=== PATIENT | female | born 1995 | race Caucasian/White ===

== ENCOUNTER → 2021-02-05 | Outpatient (CLI) | payer BC ==
--- NOTE | 2021-02-05 17:30 | Diagnostic Imaging Report ---
INDICATION: survey. There are no prior studies available for comparison. There is a single live fetus in breech presentation. heart motion was noted and a rate of 155 BPM was recorded. There were no abnormalities identified. However the face was not well visualized due to lie. The placenta is anterior and there is no previa. The amniotic fluid volume is within normal limits. The growth parameters are fairly uniform. The cervix was identified and measures 4.2 cm in length. TECHNIQUE: Multiple real-time grayscale images were obtained over the gravid uterus. COMPARISON: None FINDINGS: Biometrical measurements are as follows: Biparietal 4.75 cm, age 20 weeks 3 days. Head circumference 17.81 cm, age 20 weeks 2 days. Abdominal circumference 16.26 cm, age 21 weeks 3 days. Femur length 3.26 cm, age 20 weeks 2 days. Sonographic estimate age: 20 weeks 5 days. Sonographic estimated date of delivery: 06/20/2021. Estimated Weight: 374 gm (+/- 55 gm). LMP percentile: 63%. heart rate: 155 beats per minute. number: 1 of 1. IMPRESSION: 1. There is a single live fetus approximately 20 weeks 5 day gestation +/- 1.5 weeks. EDC is 06/20/2021. 2. There were no abnormalities identified, although the face was not well visualized. 3. The growth parameters are fairly uniform. Dictated by: Dictated on workstation # [id number]
== END ==
LOC: RAD 14:54
PROVIDERS: ATTEND Nurse Practitioner Women's Health
DX: Z34.02 Encounter for supervision of normal first pregnancy, second trimester (principal); Z3A.20 20 weeks gestation of pregnancy
CPT/HCPCS: 76805

== ENCOUNTER 2021-06-22 19:11 | Inpatient (IN) | payer BC ==
[~2021-06-22] VITALS: Ht 165.1 cm; Wt 110.0 kg
[2021-06-22 19:50] VITALS: BP 124/77
[2021-06-22] MEDS ORDERED: NS IV 1000 ML 1,000 ML ONE (19:53)
[2021-06-22 20:58] LABS: BASOPHILS % (AUTO) 0 % (0-10); EOSINOPHILS % (AUTO) 0 % (0-10); HEMATOCRIT 36 % (35-52); HEMOGLOBIN 12.2 g/dL (11.5-16.0); LYMPHOCYTES # (AUTO) 1.3 10^3/uL (1.0-4.0); LYMPHOCYTES % (AUTO) 11 % (12-44); MEAN CORPUSCULAR HEMOGLOBIN 31 pg (25-34); MEAN CORPUSCULAR HGB CONC 34 g/dL (32-36); MEAN CORPUSCULAR VOLUME 92 fL (80-99); MEAN PLATELET VOLUME 11.4 fL (9.0-12.2); MONOCYTES # (AUTO) 0.6 10^3/uL (0.0-1.0); MONOCYTES % (AUTO) 5 % (0-12); NEUTROPHILS # (AUTO) 9.6 10^3/uL (1.8-7.8); NEUTROPHILS % (AUTO) 83 % (42-75); PLATELET COUNT 227 10^3/uL (130-400); WHITE BLOOD COUNT 11.6 10^3/uL (4.3-11.0)
[2021-06-22] MEDS ORDERED: NS IV 1000 ML 1,000 ML IV ONE (21:00)
[2021-06-22] MEDS ORDERED: TERBUTALINE INJ 1 MG/ML (BRETHINE) AMP SC PRN (21:00)
[2021-06-22 21:02] VITALS: BP 134/92
[2021-06-22 21:38] VITALS: BP 120/66
[2021-06-22] MEDS: CATHETER FLUSH 10 ML SYR IV SCH (22:00)
[2021-06-22 22:20] VITALS: BP 116/65
[2021-06-22 23:20] VITALS: BP 108/59
[2021-06-22] MEDS ORDERED: PREN-142 PO (23:43)
[2021-06-22] MEDS ORDERED: FERR-84 PO (23:43)
[2021-06-23] VITALS (68 sets, daily range): BP systolic 88–169; BP diastolic 46–110
[2021-06-23] MEDS: D5 LR IV SOLUTION 1,000 ML IV SCH ×4 (00:01→20:22)
[2021-06-23] MEDS ORDERED: AMPICILLIN FOR IV USE 2,000 MG in NS (IVPB) 50 ML IV ONE (02:00)
[2021-06-23] MEDS ORDERED: HYDROmorphone 2 MG/ML VIAL (DILAUDID) ONE (02:14)
[2021-06-23] MEDS ORDERED: HYDROmorphone 2 MG/ML VIAL (DILAUDID) IV ONE (02:15)
[2021-06-23] MEDS ORDERED: fentaNYL 2 mcg/ml BUPIVA 0.125 100 ML ONE (02:27)
[2021-06-23] MEDS ORDERED: LACTATED RINGERS 1,000 ML IV ONE (03:30)
[2021-06-23] MEDS ORDERED: EPIDURAL (fentaNYL 2 MCG/ML BUPIVA 0.125%)100 ML BAG EPI SCH (04:30)
[2021-06-23] MEDS ORDERED: diphenhydrAMINE 50 MG/ML INJ (BENADRYL) IV PRN (04:30)
[2021-06-23] MEDS ORDERED: LACTATED RINGERS 1,000 ML IV SCH (04:30)
[2021-06-23] MEDS ORDERED: ONDANSETRON 4 MG/2 ML (SDV) Z0FRAN IV PRN (04:30)
[2021-06-23] MEDS ORDERED: NALOXONE 0.4 MG/ML 1 ML (NARCAN) VIAL IV PRN ×2 (04:30)
[2021-06-23] MEDS ORDERED: METOCLOPRAMIDE INJ 10 MG/2 ML (REGLAN) IV PRN (04:30)
[2021-06-23] MEDS ORDERED: AMPICILLIN FOR IV USE 1,000 MG in NS (IVPB) 50 ML IV SCH (06:00)
[2021-06-23] MEDS ORDERED: LIDOCAINE/EPI 2% 1:200,00 (XYLOCAINE) 10 ML VIAL ONE (08:12)
[2021-06-23] MEDS ORDERED: OXYTOCIN PRE-MIX DRIP 500 ML IV ONE ×3 (08:12→10:34)
[2021-06-23] MEDS: LACTATED RINGERS 1,000 ML IV PRN ×3 (09:00→11:06)
[2021-06-23] MEDS ORDERED: METHYLERGONOVINE 0.2 MG/ML (METHERGINE) AMP ONE ×2 (09:10→10:32)
[2021-06-23] MEDS ORDERED: CARBOPROST (HEMABATE) 250 MCG/ML AMP IM ONE ×3 (09:31→10:49)
[2021-06-23] MEDS ORDERED: NS IV 500 ML 500 ML IV SCH ×2 (09:45→21:00)
[2021-06-23] MEDS ORDERED: ceFAZolin 2 GM IV Premixed 50 ML ONE (09:48)
[2021-06-23] MEDS ORDERED: NS (IVPB) 100 ML ONE (10:36)
[2021-06-23] MEDS ORDERED: TRANEXAMIC ACID 100 MG/ML 10 ML INJECTION ONE (10:43)
[2021-06-23] MEDS ORDERED: PHENYLEPHRINE INJ 10 MG/ML (FOR DRIP KITS ONLY) ONE ×2 (10:59→13:25)
[2021-06-23] MEDS ORDERED: ALBUMIN 25% 25 GM/100 ML 100 ML IV ONE ×2 (11:05→11:06)
[2021-06-23 11:25] LABS: HEMOGLOBIN 8.8 g/dL (11.5-16.0)
[2021-06-23 11:26] LABS: ABG BASE EXCESS -16.6 MMOL/L (-2.5-2.5); ABG OXYGEN SATURATION 100 % (94-100); ABG PCO2 38 MMHG (35-45); ABG PO2 376 MMHG (79-93); ABG TCO2 12.4 MMOL/L (21.0-31.0)
[2021-06-23 11:29] LABS: VENTILATOR YES
[2021-06-23 11:33] LABS: INR 3.3 (0.8-1.4); PROTHROMBIN TIME PATIENT 33.9 SEC (12.2-14.7)
[2021-06-23 12:30] LABS: HEMOGLOBIN 6.9 g/dL (11.5-16.0)
[2021-06-23] MEDS ORDERED: ceFAZolin INJECTION 2,000 MG ONE (12:34)
[2021-06-23] MEDS ORDERED: MIDAZOLAM 5 MG/5 ML (VERSED) VIAL ONE (12:47)
[2021-06-23] MEDS ORDERED: SODIUM BICARB 8.4% 50 MEQ/50 ML (ABBOTT) SYR IV NR (13:00)
[2021-06-23] MEDS ORDERED: PROPOFOL DRIP (ICU) 100 ML IV ONE (13:05)
[2021-06-23] MEDS: PROPOFOL DRIP (ICU) 100 ML IV SCH ×3 (13:17→22:34)
--- NOTE | 2021-06-23 13:19 | Progress Note-Post Operative ---
Post-Operative Progess Note Surgeon (s)/Acds Block 1 Operator (s) Surgeon MARTA DAWN DO Acds Block 1 Operator: none Pre-Operative Diagnosis Hypotension, Vaginal hemorrhage, Venous Insufficiency Post-Operative Diagnosis same Procedure & Operative Findings Date of Procedure 06/23/21 Procedure Performed/Findings Central Line Insertion This was an emergency, pt in the OR needed emergent central venous access. Prepped and draped in the sterile fashion. A surgical pause was performed. Ultrasound was used to locate the internal jugular vein. Once located an 18 gauge finder needle was advance and watched with the US; the left internal jugular vein was accessed. Dark nonpulsatile blood was withdrawn. The wire was inserted and US assured proper placement. The needle was removed. A [#11] blade scalpel was used to make a stab incision along the guidewire. Dilator sheath was then advanced over the wire using Seldinger technique and the dilator was removed. The Groshong catheter was inserted over the guide wire using the Seldinger technique. The Groshong wire was removed. The catheter was then accessed in all three ports without difficulty. Good flash of blood was seen and it was then flushed with saline. The catheter was sutured in place with 3-0 silk on a laine needle. The areas were then washed and dried. Sterile dressing was placed over incision. The patient tolerated the procedure well without complication. Anesthesia Type GET Estimated Blood Loss Estimated blood loss (mL): scant Specimens/Packing Specimens Removed none MARTA DAWN DO Jun 23, 2021 13:19
[2021-06-23] MEDS ORDERED: SUCCINYLCHOLINE INJ 100 MG/5 ML SYR/VIAL ONE (13:25)
[2021-06-23] MEDS ORDERED: proPOfol 200 MG/20 ML (DIPRIVAN) VIAL IV ONE (13:25)
[2021-06-23] MEDS ORDERED: PHENYLEPHRINE 100 MCG/ML 10 ML (ANESTHESIA) SYR ONE (13:25)
[2021-06-23] MEDS ORDERED: ONDANSETRON 4 MG/2 ML (SDV) Z0FRAN ONE (13:25)
[2021-06-23] MEDS ORDERED: SEVOFLURANE (ULTANE) 15 ML INHAL SOLN ONE (13:26)
--- NOTE | 2021-06-23 13:33 | Tele-ICU Consult ---
History of Present Illness History of Present Illness Date Seen by Provider: Jun 23, 2021 Time Seen by Provider: 13:33 Date of Admission 06/23/21 History of Present Illness She is admitted for induction of labor for her first . During the intrapartum. She had a severe hemorrhage with blood loss up to 5 L. She was taken to the operating room and inspection done under general anesthesia and reportedly she underwent hysterectomy. At the time of this dictation operative report was not available. I have discussed with the details with AIRCRAFT ARMORER and obtained some history. She is noted to have a severe anemia, thrombocytopenia and coagulopathy. She is being transfused FFP, PRBCs, cryoprecipitate. She came back from surgery on mechanical ventilation. I have given orders related to mechanical ventilation. The surgeon is managing the management of hemorrhage. Reportedly she does not have any other medical problems prior to the . Allergies and Home Medications Allergies Coded Allergies: No Known Drug Allergies (Unverified , 06/22/21) Home Medications Ferrous Sulfate 325 Mg Tablet, 325 MG PO DAILY, (Reported) Vit No.124/Iron/FA 1 Each Tablet, 1 EACH PO DAILY, (Reported) Past Medical/Social/Family Hx Patient Social History Tobacco Use?: No Smoking Status: Never a Smoker Smokeless Tobacco Frequency: Never a User Use of E-Cig and/or Vaping dev: No Substance use?: No Alcohol Use?: No Pt stated abuse/neglect: No Immunizations Up To Date Influenza Vaccine Up-to-Date: No; Not Current Tetanus Booster (TDap): Less Than 5 Years Current Status Advance Directives: No Communicates: Verbally Primary Language: Thai Preferred Spoken Language: Thai Is interpretation needed?: No Implanted or Applied Medical D: None Review of Systems Constitutional: see HPI, other (INTUBATED, LOOKS PALE) Focused Exam Height, Weight, BMI Height: '" Weight: lbs. oz. kg; 31.55 BMI Method: Exam Exam Patient acknowledged, consented, and participated in this virtual visit which was conducted using real time audio/video Vital Signs Date Time Temp Pulse Resp B/P (MAP) Pulse Ox O2 Delivery O2 Flow Rate FiO2 06/23/21 13:17 152/90 06/23/21 09:42 131 18 88/47 (61) 100 Non Rebreather 10.00 06/23/21 09:39 126 18 94/46 (62) 100 Non Rebreather 10.00 06/23/21 09:37 144 18 107/70 (82) 100 Non Rebreather 10.00 06/23/21 09:31 121 18 119/59 (79) 100 Non Rebreather 10.00 06/23/21 09:29 118 18 106/69 (81) 100 Non Rebreather 10.00 06/23/21 09:13 99 18 117/62 (80) 100 Room Air 06/23/21 09:11 99 18 117/59 (78) 98 Room Air 06/23/21 09:08 38.5 157 18 162/96 (118) 100 Room Air 06/23/21 08:57 134 18 143/68 (93) 100 Room Air 06/23/21 07:00 36.8 64 18 121/68 (85) 100 Room Air 06/23/21 06:45 65 18 119/73 (88) 100 Room Air 06/23/21 06:30 66 18 117/73 (88) 100 Room Air 06/23/21 06:15 74 18 123/76 (92) 100 Room Air 06/23/21 06:00 62 18 118/71 (87) 100 Room Air 06/23/21 05:45 69 18 113/77 (89) 100 Room Air 06/23/21 05:30 36.8 64 18 113/65 (81) 100 Room Air 06/23/21 05:15 64 18 113/68 (83) 100 Room Air 06/23/21 05:10 64 18 115/68 (84) 100 Room Air 06/23/21 05:05 74 18 121/61 (81) 100 Room Air 06/23/21 05:00 69 18 115/69 (84) 100 Room Air 06/23/21 04:55 62 18 115/69 (84) 100 Room Air 06/23/21 04:50 71 18 118/67 (84) 100 Room Air 06/23/21 04:43 69 18 111/63 (79) 100 Room Air 06/23/21 04:39 66 18 118/63 (81) 100 Room Air 06/23/21 04:36 68 18 114/57 (76) 100 Room Air 06/23/21 04:33 78 18 126/53 (77) 100 Room Air 06/23/21 04:30 71 18 117/65 (82) 97 Room Air 06/23/21 04:27 70 18 117/59 (78) 97 Room Air 06/23/21 04:24 67 18 117/55 (75) 97 Room Air 06/23/21 04:21 67 18 126/61 (82) 99 Room Air 06/23/21 04:18 73 18 128/62 (84) 99 Room Air 06/23/21 04:15 60 18 134/61 (85) 99 Room Air 06/23/21 04:12 68 18 144/66 (92) 99 Room Air 06/23/21 04:09 72 18 150/63 (92) 99 Room Air 06/23/21 04:06 65 18 134/62 (86) 99 Room Air 06/23/21 04:03 69 18 134/65 (88) 99 Room Air 06/23/21 04:00 36.8 64 18 133/69 (90) Room Air 06/23/21 03:00 69 18 141/87 (105) Room Air 06/23/21 02:00 36.8 73 18 119/67 (84) Room Air 06/23/21 01:00 76 18 116/57 (76) Room Air 06/23/21 00:20 73 18 108/58 (75) Room Air 06/22/21 23:20 82 18 108/59 (75) Room Air 06/22/21 22:20 36.8 75 18 116/65 (82) 97 Room Air 06/22/21 21:38 82 18 120/66 (84) Room Air 06/22/21 21:02 97 18 134/92 (106) Room Air 06/22/21 19:50 36.9 116 18 124/77 (93) 98 Room Air 06/22/21 19:50 36.9 116 18 98 Room Air I & O 06/23/21 07:00 Intake Total 2050 ml Balance 2050 ml Height & Weight Height: '" Weight: lbs. oz. kg; 31.55 BMI Method: General Appearance: Moderate Distress Capillary Refill: Less Than 3 Seconds Other comments PE PER RN Results Lab Laboratory Tests 06/22/21 20:05 06/23/21 10:40 06/23/21 12:10 Assessment/Plan Assessment/Plan Impression. 1. Intrapartum hemorrhage requiring hysterectomy. 2. Anemia with coagulopathy related to complication 3. Postoperative respiratory failure requiring mechanical ventilation. Recommendations 1. Continue mechanical ventilatory support 2. I have ordered sodium bicarbonate IV push due to severe metabolic acidosis 3. Transfusion of blood products per the surgeon 4. Continue monitor CBC, BMP arterial blood gases as well as coagulation studies. 5. Video visit made and discussed with the AIRCRAFT ARMORERbutton riveter: Ventilator Management Time spent with patient (mins): 35 DEVEN PIEDRA MD Jun 23, 2021 13:33
--- NOTE | 2021-06-23 13:37 | Diagnostic Imaging Report ---
INDICATION: ET tube and central line placement. TIME OF EXAM: 1:19 p.m. COMPARISON: No prior studies are available for comparison. FINDINGS: ET tube has tip above the sylvia. NG tube passes into the stomach. There is a left-sided line with the tip overlying the SVC. No definite pneumothorax is identified. Lungs appear clear. There is no effusion. IMPRESSION: Satisfactory position of various lines and catheters. Dictated by: Dictated on workstation # [id number]
[2021-06-23] MEDS ORDERED: NS IV 1000 ML 1,000 ML IV ONE (13:45)
[2021-06-23] MEDS ORDERED: SODIUM BICARB 8.4% 50 MEQ/50 ML (ABBOTT) SYR INJ ONE (13:57)
[2021-06-23] MEDS ORDERED: CALCIUM CHLORIDE 1 GM/10 ML (IMS) SYR INJ ONE (13:57)
[2021-06-23] MEDS ORDERED: fentaNYL DRIP PRE-MIX 250 ML IV ONE (14:16)
[2021-06-23] MEDS: fentaNYL DRIP PRE-MIX 250 ML IV SCH ×2 (14:23→22:32)
[2021-06-23 14:26] LABS: ABG BASE EXCESS -4.4 MMOL/L (-2.5-2.5); ABG OXYGEN SATURATION 100 % (94-100); ABG PCO2 33 MMHG (35-45); ABG PH 7.39 (7.37-7.43); ABG PO2 172 MMHG (79-93); ABG TCO2 20.6 MMOL/L (21.0-31.0)
[2021-06-23 14:28] LABS: ALLENS TEST ART LINE
[2021-06-23 14:29] LABS: INSPIRED O2 40%; PATIENT TEMP 37.2; VENTILATOR YES
--- NOTE | 2021-06-23 14:45 | History & Physical-OB ---
OB - Chief Complaint & HPI Date/Time Date of Admission: Date of Admission: Jun 22, 2021 at 19:11 Date seen by a Provider: Jun 23, 2021 Time Seen by a Provider: 08:00 Chief Complaint/History Hx : 1 Hx Para: 0 Expected Date of Delivery: Jun 22, 2021 Gestational Age in Weeks: 40 Gestational Age in Days: 1 Other reason for admission: Patient admitted last night for IOL due to post dates. Admission Nurse Assessment Rev: Yes History of Labs O neg GBS pos Allergies and Home Medications Allergies Coded Allergies: No Known Drug Allergies (Unverified , 06/22/21) Patient Home Medication List Home Medication List Reviewed: Yes Ferrous Sulfate (Iron) 325 Mg Tablet, 325 MG PO DAILY, (Reported) Entered as Reported by: ENRIQUETA JAY on 06/22/212342 Last Action: New Order Vit No.124/Iron/FA ( Vitamin Tablet) 1 Each Tablet, 1 EACH PO DAILY, (Reported) Entered as Reported by: ENRIQUETA JAY on 06/22/212342 Last Action: New Order OB - History Hx of Present Care: Yes Ultrasounds: Normal mid trimester US Obstetrical Complications: None Medical Complications: None Patient Past Medical History n/a Immunizations Influenza Vaccine Up-to-Date: No; Not Current OB - Admission Exam Physical Exam Vitals: Vital Signs 06/23/21 06/23/21 13:45 14:22 Temp 37.5 Pulse 146 Resp 18 B/P (MAP) 110/53 Pulse Ox 100 O2 Delivery Mechanical Ventilator O2 Flow Rate 100 FiO2 30 HEENT: NCAT Heart: Rhythm Normal Lungs: Clear Abdomen: Gravid Extremities: Normal Reflexes: Normal Cervical Dilatation: 1cm Effacement: 75% Station: -2 Membranes: Intact Heart Rate: 130's Accelerations: Accelerations Present Decelerations: No Decelerations Short Term Variability: Present Snf Variability: Average (6-25) Contractions on Admission: 6-10 Minutes Apart Intensity: Mild Labs Laboratory Tests Test 06/22/21 20:05 06/23/21 10:40 06/23/21 11:15 06/23/21 11:18 Range/Units White Blood Count 11.6 H 4.3-11.0 10^3/uL Red Blood Count 3.88 3.80-5.11 10^6/uL Hemoglobin 12.2 8.8 #L 11.5-16.0 g/dL Hematocrit 36 27 L 35-52 % Mean Corpuscular Volume 92 80-99 fL Mean Corpuscular Hemoglobin 31 25-34 pg Mean Corpuscular Hemoglobin Concent 34 32-36 g/dL Red Cell Distribution Width 12.8 10.0-14.5 % Platelet Count 227 51 L 130-400 10^3/uL Mean Platelet Volume 11.4 9.0-12.2 fL Immature Granulocyte % (Auto) 1 % Neutrophils (%) (Auto) 83 H 42-75 % Lymphocytes (%) (Auto) 11 L 12-44 % Monocytes (%) (Auto) 5 0-12 % Eosinophils (%) (Auto) 0 0-10 % Basophils (%) (Auto) 0 0-10 % Neutrophils # (Auto) 9.6 H 1.8-7.8 10^3/uL Lymphocytes # (Auto) 1.3 1.0-4.0 10^3/uL Monocytes # (Auto) 0.6 0.0-1.0 10^3/uL Eosinophils # (Auto) 0.0 0.0-0.3 10^3/uL Basophils # (Auto) 0.0 0.0-0.1 10^3/uL Immature Granulocyte # (Auto) 0.1 0.0-0.1 10^3/uL Prothrombin Time 33.9 H 12.2-14.7 SEC INR Comment 3.3 H 0.8-1.4 Blood Gas Puncture Site LT BRACHIAL Blood Gas Patient Temperature UNK Arterial Blood pH 7.10 *L 7.37-7.43 Arterial Blood Partial Pressure CO2 38 35-45 MMHG Arterial Blood Partial Pressure O2 376 H 79-93 MMHG Arterial Blood HCO3 11 *L 23-27 MMOL/L Arterial Blood Total CO2 12.4 L 21.0-31.0 MMOL/L Arterial Blood Oxygen Saturation 100 94-100 % Arterial Blood Base Excess -16.6 L -2.5-2.5 MMOL/L Fabio Test UNK Blood Gas Ventilator Setting YES Blood Gas Inspired Oxygen UNK Test 06/23/21 12:10 06/23/21 14:18 06/23/21 14:29 Range/Units Hemoglobin 6.9 #*L 11.5-16.0 g/dL Hematocrit 21 L 35-52 % Blood Gas Puncture Site R FEM ARTLINE Blood Gas Patient Temperature 37.2 Arterial Blood pH 7.39 7.37-7.43 Arterial Blood Partial Pressure CO2 33 L 35-45 MMHG Arterial Blood Partial Pressure O2 172 H 79-93 MMHG Arterial Blood HCO3 20 L 23-27 MMOL/L Arterial Blood Total CO2 20.6 L 21.0-31.0 MMOL/L Arterial Blood Oxygen Saturation 100 94-100 % Arterial Blood Base Excess -4.4 L -2.5-2.5 MMOL/L Fabio Test ART LINE Blood Gas Ventilator Setting YES Blood Gas Inspired Oxygen 40% OB - Assessment/Plan/Diagnosis Assessment Assessment: induction of labor Admission Dx 25 yo @ 40.1 weeks Post dates IOL GBS pos Admission Status: Inpatient Order (span 2 midnights) Reason for Inpatient Admission: IOL at 40 weeks Plan Plan: Induction Induction Method: per Misoprostol Protocol SENG RAMIREZ DO Jun 23, 2021 14:45
[2021-06-23 14:47] LABS: INR 1.8 (0.8-1.4)
[2021-06-23 14:50] LABS: HEMOGLOBIN 4.7 g/dL (11.5-16.0)
--- NOTE | 2021-06-23 14:56 | OB Labor & Delivery Record ---
L&D History Date of Service Date of Service: Jun 23, 2021 History Expected Date of Delivery: Jun 22, 2021 Gestational Age in Weeks: 40 Hx : 1 Hx Para: 0 Complications Events: Routine care Intrapartal Events: Bleeding, Ineffective Pushing Other Complications hemorrhage L&D Stage1 Stage One Onset of Labor - Date: Jun 23, 2021 Monitors and Tracing Monitor Mode: External Heart Rate: 155 Monitor Decelerations: Variable Station: +1 Chemical Lab Technician Variability: Average (6-10) Short Term Variability: Present Presentation: Vertex Vital Signs VS - Last 72 Hours, by Label 06/22/21 06/22/21 06/22/21 06/22/21 19:50 19:50 21:02 21:38 Temp 36.9 36.9 Pulse 116 116 97 82 Resp 18 18 18 18 B/P (MAP) 124/77 (93) 134/92 (106) 120/66 (84) Pulse Ox 98 98 O2 Delivery Room Air Room Air Room Air Room Air 06/22/21 06/22/21 06/23/21 06/23/21 22:20 23:20 00:20 01:00 Temp 36.8 Pulse 75 82 73 76 Resp 18 18 18 18 B/P (MAP) 116/65 (82) 108/59 (75) 108/58 (75) 116/57 (76) Pulse Ox 97 O2 Delivery Room Air Room Air Room Air Room Air 06/23/21 06/23/21 06/23/21 06/23/21 02:00 03:00 04:00 04:03 Temp 36.8 36.8 Pulse 73 69 64 69 Resp 18 18 18 18 B/P (MAP) 119/67 (84) 141/87 (105) 133/69 (90) 134/65 (88) Pulse Ox 99 O2 Delivery Room Air Room Air Room Air Room Air 06/23/21 06/23/21 06/23/21 06/23/21 04:06 04:09 04:12 04:15 Pulse 65 72 68 60 Resp 18 18 18 18 B/P (MAP) 134/62 (86) 150/63 (92) 144/66 (92) 134/61 (85) Pulse Ox 99 99 99 99 O2 Delivery Room Air Room Air Room Air Room Air 06/23/21 06/23/21 06/23/21 1/19/22 04:18 04:21 04:24 04:27 Pulse 73 67 67 70 Resp 18 18 18 18 B/P (MAP) 128/62 (84) 126/61 (82) 117/55 (75) 117/59 (78) Pulse Ox 99 99 97 97 O2 Delivery Room Air Room Air Room Air Room Air 06/23/21 06/23/21 06/23/21 06/23/21 04:30 04:33 04:36 04:39 Pulse 71 78 68 66 Resp 18 18 18 18 B/P (MAP) 117/65 (82) 126/53 (77) 114/57 (76) 118/63 (81) Pulse Ox 97 100 100 100 O2 Delivery Room Air Room Air Room Air Room Air 06/23/21 06/23/21 06/23/21 06/23/21 04:43 04:50 04:55 05:00 Pulse 69 71 62 69 Resp 18 18 18 18 B/P (MAP) 111/63 (79) 118/67 (84) 115/69 (84) 115/69 (84) Pulse Ox 100 100 100 100 O2 Delivery Room Air Room Air Room Air Room Air 06/23/21 06/23/21 06/23/21 06/23/21 05:05 05:10 05:15 05:30 Temp 36.8 Pulse 74 64 64 64 Resp 18 18 18 18 B/P (MAP) 121/61 (81) 115/68 (84) 113/68 (83) 113/65 (81) Pulse Ox 100 100 100 100 O2 Delivery Room Air Room Air Room Air Room Air 06/23/21 06/23/21 06/23/21 06/23/21 05:45 06:00 06:15 06:30 Pulse 69 62 74 66 Resp 18 18 18 18 B/P (MAP) 113/77 (89) 118/71 (87) 123/76 (92) 117/73 (88) Pulse Ox 100 100 100 100 O2 Delivery Room Air Room Air Room Air Room Air 06/23/21 06/23/21 06/23/21 06/23/21 06:45 07:00 07:15 07:30 Temp 36.8 Pulse 65 64 74 71 Resp 18 18 18 18 B/P (MAP) 119/73 (88) 121/68 (85) 121/68 (85) Pulse Ox 100 100 100 100 O2 Delivery Room Air Room Air Room Air Room Air 06/23/21 06/23/21 06/23/21 06/23/21 07:45 08:00 08:15 08:30 Temp 37.1 Pulse 68 75 85 71 Resp 18 18 18 18 B/P (MAP) 120/64 (82) 128/65 (86) 120/88 (99) 129/76 (93) Pulse Ox 100 100 100 100 O2 Delivery Room Air Room Air Room Air Room Air 06/23/21 06/23/21 06/23/21 06/23/21 08:45 08:57 09:08 09:11 Temp 38.5 Pulse 71 134 157 99 Resp 18 18 18 18 B/P (MAP) 130/63 (85) 143/68 (93) 162/96 (118) 117/59 (78) Pulse Ox 100 100 98 O2 Delivery Room Air Room Air Room Air Room Air 06/23/21 06/23/21 06/23/21 06/23/21 09:13 09:29 09:31 09:37 Pulse 99 118 121 144 Resp 18 18 18 18 B/P (MAP) 117/62 (80) 106/69 (81) 119/59 (79) 107/70 (82) Pulse Ox 100 100 100 100 O2 Delivery Room Air Non Rebreather Non Rebreather Non Rebreather O2 Flow Rate 10.00 10.00 10.00 06/23/21 06/23/21 06/23/21 06/23/21 09:39 09:42 12:45 12:45 Temp 36.1 Pulse 126 131 Resp 18 18 20 B/P (MAP) 94/46 (62) 88/47 (61) 169/86 (113) Pulse Ox 100 100 100 O2 Delivery Non Rebreather Non Rebreather Mechanical Ventilator Mechanical Macario tilator O2 Flow Rate 10.00 10.00 100 06/23/21 06/23/21 06/23/21 06/23/21 12:55 13:00 13:00 13:15 Resp 20 20 B/P (MAP) 146/110 (122) 168/100 (122) Pulse Ox 100 100 O2 Delivery Mechanical Ventilator Mechanical Ventilator Mechanical Ventilator Mechanical Ventilator O2 Flow Rate 100 100 06/23/21 06/23/21 06/23/21 06/23/21 13:15 13:17 13:25 13:30 Temp 36.5 Resp 20 20 B/P (MAP) 152/90 O2 Delivery Mechanical Ventilator Mechanical Ventilator Mechanical Ventilator O2 Flow Rate 100 06/23/21 06/23/21 06/23/21 06/23/21 13:35 13:37 13:45 13:45 Temp 36.6 Pulse 149 Resp 20 23 B/P (MAP) Pulse Ox 100 100 O2 Delivery Mechanical Ventilator Mechanical Ventilator FiO2 40 40 06/23/21 06/23/21 06/23/21 13:45 14:10 14:22 Temp 37.3 37.5 Pulse 142 146 Resp 18 18 B/P (MAP) 107/53 110/53 Pulse Ox 99 100 O2 Delivery Mechanical Ventilator Mechanical Ventilator Mechanical Ventilator O2 Flow Rate 100 FiO2 40 30 Rupture of Membranes Spontaneous Ruture of Membrane: Yes Amniotic Membrane Rupture Time: 0200 Amniotic Membrane Fluid Desc.: Clear Vaginal Bleeding Description: Normal Show Induction/Anesthesia Epidural Cath Placement - Time: 0408 Progress/Notes Patient admitted for IOL at 40 weeks. SHe was given PO misoprostol overnight. Loading dose of 100 mcg given after IVF bolus of 500 NS given. She had SROM with clear fluid at 2-3 am, an epidural was requested shortly after and she prog ressed rapidly after that to complete and +2 station. FHR tracing at that point had repetitve deep variable decelerations. L&D Stage2 Stage Two Stage II Date: Jun 23, 2021 Monitors and Tracing Monitor Mode: External Heart Rate: 155 Monitor Decelerations: Variable Chemical Lab Technician Variability: Average (6-10) Short Term Variability: Present Position: Right Occiput Anterior Presentation: Vertex Signs of Distress by FHT Signs of Distress deep decelerations noted with contraction and maternal pushing which was not effective once +3station was met. Therefore due to concerns with well being, and ineffective maternal pushing a low vaccum extraction was performed after RML was done. Kiwi cup placed carefully over the flexion point on scalp. 400 mmHg was applied in pressure using the handpiece. With gentle extension of the head with the next maternal push the head was delivered over the RML perineum where no extension of the episiotomy occurred. Once head was delivered, kiwi suction released and removed. Nares and oropharynx bulb suctioned. Anterior and posterio shoulders delivered with maternal pushing ass istance. Cord Descript/Complications Cord Vessel Description: 3 Vessels Delivery Type Infant Delivery Method: Low Vacuum Extraction Anterior Shoulder: Left Episiotomy/Perineal Laceration Laceraction(s)/Extensions: Yes Episiotomy Description: Right Mediolateral Degree (describe repair) RML repaired using 3-0 and 2-0 vicryl in usual fashion. Condition of Infant Delivery 1 minute Comment: 8 5 minute Comment: 9 Notes Live female infant weight pending Condition of Infant Condition of : Living Exam: No Observed Abnormalities Resuscitation Resuscitation: N/A - Spontaneous Resp L&D Stage3 Stage Three Stage III Date: Jun 23, 2021 Pictocin Pitocin Administration Comment: 30 mu wide open after delivery of placenta Placenta Delivery Placenta Delivery: Spontaneous Delivery Summary Summary Estimated blood loss (mL): 5000 see operative report for details pertaining to the total 5 L blood loss. 2500mL in the room. Attending at delivery: Seng Ramirez DO Condition of Delivery Post Hemorrhage: Yes Intervention Required see operative report 06/23/2021 Condition of Mother see operative report Condition of Infant (s) stable SENG RAMIREZ DO Jun 23, 2021 14:56
[2021-06-23] MEDS: CATHETER FLUSH 10 ML SYR IV SCH ×3 (17:42→20:22)
--- NOTE | 2021-06-23 18:52 | Consultation - Hospitalist ---
HPI History of Present Illness: HPI/Chief Complaint Elisabeth Reynoso is a 25 year old female with no significant past medical history who presented for induction of labor at 40 weeks gestation. She had a successful vaginal requiring low vacuum extraction due to ineffective pushing. She had bleeding due to uterine atony. She had a significant blood loss estimated at 5 liters. She required emergent hysterectomy to alcira the blood loss. The massive transfusion protocol was initiated and she has received 5 units PRBC, 5 units FFP, 1 unit platelets, and 1 unit cryoprecipitate. She has another unit of PRBC waiting to transfuse. She is intubated and sedated with low ventilator requirements. She is hemodynamically stable without pressor support. Source: RN/MD Exam Limitations: clinical condition Date Seen 06/23/21 Attending Physician Solomon Webb DO PCP No,Local Physician Referring Physician Date of Admission Jun 22, 2021 at 19:11 Home Medications & Allergies Home Medications Reviewed patient Home Medication Reconciliation performed by pharmacy medication reconciliations video game technician and/or nursing. Patients Allergies have been reviewed. Allergies Allergies Coded Allergies No Known Drug Allergies (Unverified06/22/21) Past Bggmcth-Ovwcwy-Cmrdgq Hx Patient Social History Tobacco Use?: No Smoking Status: Never a Smoker Smokeless Tobacco Frequency: Never a User Use of E-Cig and/or Vaping dev: No Substance use?: No Alcohol Use?: No Pt feels they are or have been: No Immunizations Up To Date Tetanus Booster (TDap): Less Than 5 Years Current Status Advance Directives: No Communicates: Verbally Primary Language: Maldivian Preferred Spoken Language: Maldivian Is interpretation needed?: No Implanted or Applied Medical D: None Past Medical History Currently Using CPAP: No Currently Using BIPAP: No n/a Family Medical History No Pertinent Family Hx Review of Systems ROS-Unable to Obtain: intubated and sedated Constitutional: see HPI Physical Exam Physical Exam Vital Signs Vital Signs - First Documented 06/22/21 06/23/21 06/23/21 19:50 09:29 13:37 Temp 36.9 Pulse 116 Resp 18 B/P (MAP) 124/77 (93) Pulse Ox 98 O2 Delivery Room Air O2 Flow Rate 10.00 FiO2 40 Capillary Refill : Less Than 3 Seconds Height, Weight, BMI Height: '" Weight: lbs. oz. kg; 31.55 BMI Method: General Appearance: No Apparent Distress, WD/WN, Moderate Distress, Other (intubated and sedated) HEENT: Other (ET tube in place) Neck: Normal Inspection, Supple Respiratory: No Respiratory Distress, Rhonci Cardiovascular: No Murmur, Tachycardia (regular rhythm) Gastrointestinal: Normal Bowel Sounds, Soft Extremity: Normal Inspection, No Pedal Edema Neurologic/Psychiatric: Other (sedated) Skin: Warm/Dry, Pallor Results Results/Procedures Labs Laboratory Tests 06/22/21 20:05 06/23/21 10:40 06/23/21 12:10 06/23/21 14:29 Patient resulted labs reviewed. Imaging: Reviewed Imaging Report Assessment/Plan Assessment and Plan Assess & Plan/Chief Complaint Hemorrhagic shock Acute blood loss anemia hemorrhage Uterine atony Thrombocytopenia Endotracheally intubated Inducation at 40 weeks gestation Vacuum assisted vaginal s/p hysterectomy Admitted to ICU after severe hemorrhage s/p emergent hysterectomy Estimated 5 L blood loss s/p 5 units PRBC, 5 units FFP, 1 unit platelets, 1 unit cryo Last Hgb 4.7 1 unit PRBC transfusion Repeat H/H, platelets, DIC panel after next transfusion Hemodynamically stable Continue isotonic fluids Bolus NS if needed for hypotension or tachycardia TeleICU following Critical Care Critically Ill Patient Diagnosis/Problems Diagnosis/Problems (1) Hemorrhagic shock Status: Acute (2) ABLA (acute blood loss anemia) Status: Acute (3) atony of uterus with hemorrhage Status: Acute (4) Status post hysterectomy Status: Acute (5) Thrombocytopenia due to massive blood transfusion Status: Acute (6) 40 weeks gestation of Status: Acute (7) Elective induction of labor planned Status: Acute (8) Vacuum-assisted vaginal delivery Status: Acute SUMMER GUTIERREZ MD Jun 23, 2021 18:52
[2021-06-23] MEDS ORDERED: NS IV 1000 ML 1,000 ML IV PRN (19:15)
[2021-06-23 20:10] LABS: EOSINOPHILS % (AUTO) 0 % (0-10)
[2021-06-23 20:12] LABS: BASOPHILS % (AUTO) 0 % (0-10); LYMPHOCYTES # (AUTO) 1.1 10^3/uL (1.0-4.0); LYMPHOCYTES % (AUTO) 7 % (12-44); MEAN CORPUSCULAR HEMOGLOBIN 30 pg (25-34); MEAN CORPUSCULAR HGB CONC 35 g/dL (32-36); MEAN CORPUSCULAR VOLUME 85 fL (80-99); MEAN PLATELET VOLUME 10.1 fL (9.0-12.2); MONOCYTES # (AUTO) 0.3 10^3/uL (0.0-1.0); MONOCYTES % (AUTO) 2 % (0-12); NEUTROPHILS # (AUTO) 13.2 10^3/uL (1.8-7.8); NEUTROPHILS % (AUTO) 88 % (42-75)
[2021-06-23 20:14] LABS: HEMATOCRIT 18 % (35-52); HEMOGLOBIN 6.3 g/dL (11.5-16.0); PLATELET COUNT 27 10^3/uL (130-400)
[2021-06-23] MEDS: ceFAZolin 2 GM IV Premixed 50 ML IV SCH (20:26)
[2021-06-23 20:31] LABS: BAND NEUTROPHILS 4 %; LYMPHOCYTES % (MANUAL) 8 %; MONOCYTES % (MANUAL) 1 %; NEUTROPHILS % (MANUAL) 87 %; POLYCHROMASIA MODERATE
[2021-06-23 20:32] LABS: ACANTHOCYTES MODERATE
[2021-06-23 20:40] LABS: ALBUMIN 2.6 GM/DL (3.2-4.5); POTASSIUM 3.7 MMOL/L (3.6-5.0)
[2021-06-23 20:41] LABS: CALCIUM 7.4 MG/DL (8.5-10.1)
[2021-06-23 20:42] LABS: TOTAL PROTEIN 4.3 GM/DL (6.4-8.2)
[2021-06-23 20:43] LABS: FIBRIN DEGRADATION PRODUCTS > 120.00 UG/ML (0.00-0.49); FIBRINOGEN 210 MG/DL (221-496); INR 1.6 (0.8-1.4); PARTIAL THROMBOPLASTIN TIME 57 SEC (24-35); PROTHROMBIN TIME PATIENT 19.2 SEC (12.2-14.7)
[2021-06-23 20:46] LABS: CREATININE SERUM 1.53 MG/DL (0.60-1.30)
--- NOTE | 2021-06-23 20:46 | Tele-ICU Progress Note ---
Subjective Date Seen by a Provider: Jun 23, 2021 Time Seen by a Provider: 20:43 Sepsis Event Evaluation Height, Weight, BMI Height: '" Weight: lbs. oz. kg; 31.55 BMI Method: Exam Exam Patient acknowledged, consented, and participated in this virtual visit which was conducted using real time audio/video Vital Signs Date Time Temp Pulse Resp B/P (MAP) Pulse Ox O2 Delivery O2 Flow Rate FiO2 06/23/21 19:44 37.3 80 17 97 Mechanical Ventilator 30.00 06/23/21 19:00 92 06/23/21 18:47 90 18 97 30 06/23/21 18:33 37.4 84 16 135/69 96 Mechanical Ventilator 30 06/23/21 18:27 90 117/57 06/23/21 17:39 37.2 90 17 117/57 97 Mechanical Ventilator 30 06/23/21 17:20 37.1 92 18 103/51 98 Mechanical Ventilator 30 06/23/21 17:06 37.1 89 17 103/53 98 Mechanical Ventilator 30 06/23/21 16:00 100 Mechanical Ventilator 40 06/23/21 15:33 123 18 131/73 98 Mechanical Ventilator 06/23/21 15:15 37.3 142 18 107/56 100 Mechanical Ventilator 30 06/23/21 15:00 37.4 121 18 100 Mechanical Ventilator 30.00 06/23/21 14:22 37.5 146 18 110/53 100 Mechanical Ventilator 30 06/23/21 14:10 37.3 142 18 107/53 99 Mechanical Ventilator 40 06/23/21 14:00 36.9 146 17 100 Mechanical Ventilator 30.00 06/23/21 13:45 Mechanical Ventilator 100 06/23/21 13:45 36.6 Mechanical Ventilator 06/23/21 13:45 100 Mechanical Ventilator 40 06/23/21 13:37 149 23 100 40 06/23/21 13:35 20 06/23/21 13:30 Mechanical Ventilator 100 06/23/21 13:25 20 Mechanical Ventilator 06/23/21 13:17 152/90 06/23/21 13:15 36.3 130 21 94 Mechanical Ventilator 30.00 06/23/21 13:15 36.5 20 Mechanical Ventilator 06/23/21 13:15 Mechanical Ventilator 100 06/23/21 13:00 136 06/23/21 13:00 20 168/100 (122) 100 Mechanical Ventilator 06/23/21 13:00 Mechanical Ventilator 100 06/23/21 12:55 20 146/110 (122) 100 Mechanical Ventilator 06/23/21 12:45 36.1 20 169/86 (113) 100 Mechanical Ventilator 06/23/21 12:45 Mechanical Ventilator 100 06/23/21 09:42 131 18 88/47 (61) 100 Non Rebreather 10.00 06/23/21 09:39 126 18 94/46 (62) 100 Non Rebreather 10.00 06/23/21 09:37 144 18 107/70 (82) 100 Non Rebreather 10.00 06/23/21 09:31 121 18 119/59 (79) 100 Non Rebreather 10.00 06/23/21 09:29 118 18 106/69 (81) 100 Non Rebreather 10.00 06/23/21 09:13 99 18 117/62 (80) 100 Room Air 06/23/21 09:11 99 18 117/59 (78) 98 Room Air 06/23/21 09:08 38.5 157 18 162/96 (118) 100 Room Air 06/23/21 08:57 134 18 143/68 (93) 100 Room Air 06/23/21 08:45 71 18 130/63 (85) Room Air 06/23/21 08:30 71 18 129/76 (93) 100 Room Air 06/23/21 08:15 37.1 85 18 120/88 (99) 100 Room Air 06/23/21 08:00 75 18 128/65 (86) 100 Room Air 06/23/21 07:45 68 18 120/64 (82) 100 Room Air 06/23/21 07:30 71 18 100 Room Air 06/23/21 07:15 74 18 121/68 (85) 100 Room Air 06/23/21 07:00 36.8 64 18 121/68 (85) 100 Room Air 06/23/21 06:45 65 18 119/73 (88) 100 Room Air 06/23/21 06:30 66 18 117/73 (88) 100 Room Air 06/23/21 06:15 74 18 123/76 (92) 100 Room Air 06/23/21 06:00 62 18 118/71 (87) 100 Room Air 06/23/21 05:45 69 18 113/77 (89) 100 Room Air 06/23/21 05:30 36.8 64 18 113/65 (81) 100 Room Air 06/23/21 05:15 64 18 113/68 (83) 100 Room Air 06/23/21 05:10 64 18 115/68 (84) 100 Room Air 06/23/21 05:05 74 18 121/61 (81) 100 Room Air 06/23/21 05:00 69 18 115/69 (84) 100 Room Air 06/23/21 04:55 62 18 115/69 (84) 100 Room Air 06/23/21 04:50 71 18 118/67 (84) 100 Room Air 06/23/21 04:43 69 18 111/63 (79) 100 Room Air 06/23/21 04:39 66 18 118/63 (81) 100 Room Air 06/23/21 04:36 68 18 114/57 (76) 100 Room Air 06/23/21 04:33 78 18 126/53 (77) 100 Room Air 06/23/21 04:30 71 18 117/65 (82) 97 Room Air 06/23/21 04:27 70 18 117/59 (78) 97 Room Air 06/23/21 04:24 67 18 117/55 (75) 97 Room Air 06/23/21 04:21 67 18 126/61 (82) 99 Room Air 06/23/21 04:18 73 18 128/62 (84) 99 Room Air 06/23/21 04:15 60 18 134/61 (85) 99 Room Air 06/23/21 04:12 68 18 144/66 (92) 99 Room Air 06/23/21 04:09 72 18 150/63 (92) 99 Room Air 06/23/21 04:06 65 18 134/62 (86) 99 Room Air 06/23/21 04:03 69 18 134/65 (88) 99 Room Air 06/23/21 04:00 36.8 64 18 133/69 (90) Room Air 06/23/21 03:00 69 18 141/87 (105) Room Air 06/23/21 02:00 36.8 73 18 119/67 (84) Room Air 06/23/21 01:00 76 18 116/57 (76) Room Air 06/23/21 00:20 73 18 108/58 (75) Room Air 06/22/21 23:20 82 18 108/59 (75) Room Air 06/22/21 22:20 36.8 75 18 116/65 (82) 97 Room Air 06/22/21 21:38 82 18 120/66 (84) Room Air 06/22/21 21:02 97 18 134/92 (106) Room Air I & O 06/23/21 07:00 Intake Total 2050 ml Balance 2050 ml Height & Weight Height: '" Weight: lbs. oz. kg; 31.55 BMI Method: General Appearance: No Apparent Distress, WD/WN, Moderate Distress, Other (intubated and sedated) HEENT: Other (ET tube in place) Neck: Normal Inspection, Supple Respiratory: No Respiratory Distress, Rhonci Cardiovascular: No Murmur, Tachycardia (regular rhythm) Capillary Refill: Less Than 3 Seconds Extremity: Normal Inspection, No Pedal Edema Neurologic/Psychiatric: Other (sedated) Skin: Warm/Dry, Pallor Results Lab Laboratory Tests 06/22/21 20:05 06/23/21 10:40 06/23/21 12:10 06/23/21 14:29 06/23/21 19:59 Assessment/Plan Assessment/Plan pt continues to bleed: hb<7, plt 27: 2u prbc/ 1 pool plt abg/ inr/ cmp HELLP sdr needs to be considered; pt had the baby delivered, if she had HELLP, delivery is the therapy. DIC hem onc RADHA Coon MD Jun 23, 2021 20:46
[2021-06-23 21:40] LABS: ABG BASE EXCESS -3.1 MMOL/L (-2.5-2.5); ABG OXYGEN SATURATION 99 % (94-100); ABG PCO2 26 MMHG (35-45); ABG PH 7.49 (7.37-7.43); ABG PO2 163 MMHG (79-93); ABG TCO2 20.5 MMOL/L (21.0-31.0)
[2021-06-23 21:41] LABS: ALLENS TEST ART LINE
[2021-06-23 21:42] LABS: INSPIRED O2 30%; PATIENT TEMP 37.2; VENTILATOR YES
[2021-06-23] MEDS ORDERED: IVIG 40 GM/400 ML (PRIVIGEN) IV ONE (22:00)
[2021-06-23] MEDS ORDERED: DEXAMETHASONE IV SCH (22:30)
[2021-06-23] MEDS ORDERED: NS IV SCH (22:30)
[2021-06-24 00:10] VITALS: BP 136/70
[2021-06-24] MEDS ORDERED: LACTATED RINGERS 1,000 ML IV SCH ×2 (01:30→06:15)
[2021-06-24 01:46] VITALS: BP 151/79
--- NOTE | 2021-06-24 01:50 | OPERATIVE REPORT ---
DATE OF SERVICE: PREOPERATIVE DIAGNOSIS: A 25-year-old G1, P1 with hemorrhage. POSTOPERATIVE DIAGNOSIS: A 25-year-old G1, P1 with hemorrhage. PROCEDURES: 1. Exam under anesthesia. 2. D and C. 3. Supracervical abdominal hysterectomy. SURGEON: Solomon Webb DO COMPUTER SYSTEM SPECIALIST: Hillary Garcia DNP, who was necessary for manipulation and retraction throughout the procedure. ANESTHESIA: General endotracheal. ESTIMATED BLOOD LOSS: 5000 mL. URINE OUTPUT: 100 mL clear at the end of the procedure. FLUIDS: 2900 mL of lactated Ringer's solution and normal saline with the following colloids given: A 4 units of packed red blood cells, 5 units of fresh frozen plasma, 1 unit of cryoprecipitate, 1 unit of platelets, 2 units of albumin. SPECIMEN SENT: Uterus and placenta. INDICATIONS FOR PROCEDURE: Please see my delivery note for complete details pertaining to the delivery in detail leading up to the hemorrhage. Post-delivery, the patient had significant amount of bleeding, especially after placenta had delivered. The cervix and vagina were evaluated in the LDR room with epidural in place and the patient had good pain control. After this was all inspected, there were few areas on the cervix found to be bleeding and 3-0 Vicryl suture was placed in a running locked fashion around the margins of the cervix to control the bleeding; however, at that point significant bleeding still continued from the uterus. , the patient was given 800 mcg of Cytotec, misoprostol per rectum. She was given 250 mcg of Hemabate intramuscularly and she was given 0.2 mg of Methergine intramuscularly all with no improvement in bleeding or uterine tone. Due to this indication, I rapidly discussed with the patient we would need to proceed with operating room evaluation to stop her bleeding. Risks of the procedure was briefly reviewed with the patient; however, the urgency of the matter was also discussed and her family were agreeable to proceed. She went to the operating room. OPERATIVE REPORT IN DETAIL: Once in the operating room, general anesthesia was found to be adequate. She was placed in dorsal lithotomy position, prepped and draped in normal sterile fashion. Ferrer catheter was first placed using sterile technique. A weighted speculum inserted to the patient's vagina, which allows me to visualize the cervix, which I grasped with ring forceps and identifiy margins of the cervix around searching for any lacerations that require necessitated repair. Nothing was found at that point. There is significant amount of bleeding still noted from the uterus. Due to 15 minutes of passing, I have anesthesia redose 0.2 mg of Methergine IM and I began a gentle curettage using a BanKoding curette. Little to no endometrial tissue or retained products were noted and return only large blood clots and dark blood. This was continued for approximately 15 minutes with no improvement in bleeding, at which point I placed lateral sutures at 3 and 9 o'clock position using 3-0 Vicryl suture ligating the vessels to the uterus vaginally. This does not do anything to improvement of bleeding as well. At this point, I began mass transfusion protocol as I assume blood loss was nearing 3 liters total and decided to proceed with laparotomy and evaluation of the uterus abdominally. After the abdomen was prepped, I began by making a Pfannenstiel skin incision with a knife and carried down to underlying fascia using Bovie cautery. Fascial incision extended laterally using Bovie cautery. Superior aspect of fascial incision was then grasped with Erika clamps, tented up and dissected off the underlying rectus muscles. The inferior aspect of fascial incision was then grasped with Erika clamps, tented up and dissected off the underlying rectus muscles. Rectus muscles were dissected down the midline using Loza scissors, which exposed the peritoneum, which I entered bluntly and extended using blunt traction. I then placed an Gilberto ring retractor, which offered excellent lateral sidewall retraction. The self-retaining retractor allows me to grasp the uterus, which was extremely boggy and exteriorized it. Once it was exteriorized, the bogginess of the uterus is easily demonstratable. There is absolutely no uterine tone. I began by requesting for Hemabate to be dropped on the sterile field and then inject the uterus with 250 mcg of Hemabate intramuscularly. There was no response in uterine tone in process of doing this. While massaging the uterus and trying to compress it, there is significant amount of blood noted coming out of the vagina. I then placed B-Garsia stitch using a 0 Monocryl. Once the B-Garsia compression suture was in place, the uterus was well compressed. However, bleeding continues to be significant. We are having signs of potential clotting disorders and coagulopathy at this point. We find out that her platelets are in the 40s and notified by blood bank and pathology that we have 4 total units of matched blood in-house and no platelets. Given the difficult decision at this point to proceed with conservative measures and risk DIC versus proceeding with aggressive measures and ending the bleeding, I decided to proceed with supracervical hysterectomy. I do this by performing the following dissection bilaterally using a LigaSure Impact device. I started at the uteroovarian ligament, which I sealed and transected using the LigaSure. I then grasped the round ligament, which I sealed and transected using the LigaSure. This allows me to open up the broad ligament superiorly and inferiorly, which allows me to skeletonize the uterine vessels laterally and sealed and transected using the vessel sealer. I then also took my anterior leaflet of the broad ligament around to the bladder flap in the lower uterine segment and dissect the bladder as low as I can off of the lower uterine segment, at which point I began by amputating the uterus at the cervical stump using cautery, after which there was no active bleeding noted from those dissection planes. I then make the cervical stump hemostatic by placing an 0 Vicryl suture in a [id number] fashion, running this across the cervical stump. Both closing the cervix and securing the bleeding after which there was no active bleeding noted from any of those areas to ensure hemostasis as there is a slight ooze noted at this point. I placed Surgicel hemostatic agent over the cervical stump. I do this after I copiously irrigated the pelvis using normal saline. I then removed the Gilberto ring retractor and proceeded with closing the peritoneum using 3-0 Vicryl suture in running fashion. The rectus muscles were reapproximated using 3-0 Vicryl suture in interrupted fashion. There is oozing noted from the rectus abdominal muscles. Therefore, I placed another layer of Surgicel over the rectus muscles. There was no specific bleeder or blood vessel noted just diffuse oozing of blood from this area. I then proceeded with closing the fascia using 0 Vicryl suture in running fashion. The subcutaneous tissue was reapproximated using 3-0 plain interrupted subcutaneous stitch and the skin reapproximated using darrell. Pressure was then held on the abdomen and the abdominal incision with the dressing and 2 ABD pads, and this was all secured with white micropore tape. There is still a significant amount of bleeding noted vaginally. When I evaluated the vagina, there are multiple lacerations from instrumentation down the lateral sidewalls of the vagina. I first attempted to address these using 3-0 Vicryl suture in interrupted fashion; however, the more I placed ligating sutures the more bleeding I seemed to have. I suspect that we are running close to disseminated intravascular coagulation at this point and proceed with packing the vagina using 2 vaginal packs. Before packing, I placed two doses of Surgiflo hemostatic agent into the vagina. I then packed this into the vagina using vaginal packing. The Ferrer catheter was left in place. Lap and sponge count was correct at the end of the procedure. Instrument count was correct as well. The patient was then taken to the ICU for further evaluation and to maintain intubation and ventilation. She continues to receive colloid and blood products and was transferred to the ICU. Repeat hemoglobin was ordered after the red blood cell transfusion. She was also given 2 grams of Ancef preoperatively. Another 2 grams were ordered once in the ICU due to significant amount of blood loss. Total blood loss throughout the procedure in the , hemorrhage was estimated to be 5 liters. Lap and sponge count was correct at the end of procedure. Instrument count was correct as well. Job ID: [id number] DocumentID: [id number] Dictated Date: 06/23/2021 17:24:35 Back Tufter Date: 06/24/2021 01:48:26 Dictated By: DO MARYAN THOMAS
[2021-06-24 03:06] LABS: EOSINOPHILS % (AUTO) 0 % (0-10); LYMPHOCYTES # (AUTO) 1.5 10^3/uL (1.0-4.0)
[2021-06-24 03:07] LABS: ABG BASE EXCESS -4.8 MMOL/L (-2.5-2.5); ABG OXYGEN SATURATION 99 % (94-100); ABG PCO2 24 MMHG (35-45); ABG PH 7.49 (7.37-7.43); ABG PO2 124 MMHG (79-93); ABG TCO2 18.8 MMOL/L (21.0-31.0); ALLENS TEST ART LINE
[2021-06-24 03:08] LABS: BASOPHILS % (AUTO) 0 % (0-10); HEMATOCRIT 24 % (35-52); HEMOGLOBIN 8.4 g/dL (11.5-16.0); INSPIRED O2 21%; LYMPHOCYTES % (AUTO) 9 % (12-44); MEAN CORPUSCULAR HEMOGLOBIN 29 pg (25-34); MEAN CORPUSCULAR HGB CONC 36 g/dL (32-36); MEAN CORPUSCULAR VOLUME 83 fL (80-99); MEAN PLATELET VOLUME 9.4 fL (9.0-12.2); MONOCYTES # (AUTO) 0.2 10^3/uL (0.0-1.0); MONOCYTES % (AUTO) 1 % (0-12); NEUTROPHILS # (AUTO) 15.1 10^3/uL (1.8-7.8); NEUTROPHILS % (AUTO) 88 % (42-75); PATIENT TEMP 36.8; VENTILATOR YES; WHITE BLOOD COUNT 17.1 10^3/uL (4.3-11.0)
[2021-06-24 03:10] LABS: PLATELET COUNT 21 10^3/uL (130-400)
[2021-06-24 03:12] VITALS: BP 164/85
[2021-06-24 03:20] LABS: INR 1.3 (0.8-1.4); PROTHROMBIN TIME PATIENT 16.1 SEC (12.2-14.7)
[2021-06-24 03:27] LABS: ALBUMIN 2.3 GM/DL (3.2-4.5); BILIRUBIN,TOTAL 0.8 MG/DL (0.1-1.0); CALCIUM 6.9 MG/DL (8.5-10.1); CREATININE SERUM 1.75 MG/DL (0.60-1.30); POTASSIUM 3.8 MMOL/L (3.6-5.0); TOTAL PROTEIN 4.1 GM/DL (6.4-8.2)
[2021-06-24] MEDS: PROPOFOL DRIP (ICU) 100 ML IV SCH (04:02)
[2021-06-24] MEDS: ceFAZolin 2 GM IV Premixed 50 ML IV SCH (04:19)
[2021-06-24] MEDS: D5 LR IV SOLUTION 1,000 ML IV SCH (04:24)
[2021-06-24] MEDS: CATHETER FLUSH 10 ML SYR IV SCH (04:24)
[2021-06-24] MEDS: fentaNYL DRIP PRE-MIX 250 ML IV SCH (05:06)
[2021-06-24] MEDS ORDERED: inSUlin ASPART (NovoLOG) 1 UNIT/0.01 ML (CHARGE PER UNIT) SC SCH (06:00)
[2021-06-24] MEDS ORDERED: ALBUMIN 25% 25 GM/100 ML 100 ML IV ONE (06:38)
[2021-06-24 06:46] VITALS: BP 142/74
[2021-06-24] MEDS ORDERED: IVIG 20 GM IV ONE (07:00)
[2021-06-24] MEDS ORDERED: IVIG IV ONE ×2 (07:00)
--- NOTE | 2021-06-24 07:30 | Postpartum Progress Note ---
Note Note Day # 1 Subjective: Patient is sedated and on the ventilator but easily rouse and responsive. Reports she has no pain. Conversation otherwise in minimal due to intubation. Objective: Vital Sign - Last 24 Hours 06/23/21 06/23/21 06/23/21 06/23/21 07:45 08:00 08:15 08:30 Temp 37.1 Pulse 68 75 85 71 Resp 18 18 18 18 B/P (MAP) 120/64 (82) 128/65 (86) 120/88 (99) 129/76 (93) Pulse Ox 100 100 100 100 O2 Delivery Room Air Room Air Room Air Room Air 06/23/21 06/23/21 06/23/21 06/23/21 08:45 08:57 09:08 09:11 Temp 38.5 Pulse 71 134 157 99 Resp 18 18 18 18 B/P (MAP) 130/63 (85) 143/68 (93) 162/96 (118) 117/59 (78) Pulse Ox 100 100 98 O2 Delivery Room Air Room Air Room Air Room Air 06/23/21 06/23/21 06/23/21 06/23/21 09:13 09:29 09:31 09:37 Pulse 99 118 121 144 Resp 18 18 18 18 B/P (MAP) 117/62 (80) 106/69 (81) 119/59 (79) 107/70 (82) Pulse Ox 100 100 100 100 O2 Delivery Room Air Non Rebreather Non Rebreather Non Rebreather O2 Flow Rate 10.00 10.00 10.00 06/23/21 06/23/21 06/23/21 06/23/21 09:39 09:42 12:45 12:45 Temp 36.1 Pulse 126 131 Resp 18 18 20 B/P (MAP) 94/46 (62) 88/47 (61) 169/86 (113) Pulse Ox 100 100 100 O2 Delivery Non Rebreather Non Rebreather Mechanical Ventilator Mechanical Ventilator O2 Flow Rate 10.00 10.00 100 06/23/21 06/23/21 06/23/21 06/23/21 12:55 13:00 13:00 13:00 Pulse 136 Resp 20 20 B/P (MAP) 146/110 (122) 168/100 (122) Pulse Ox 100 100 O2 Delivery Mechanical Ventilator Mechanical Ventilator Mechanical Ventilator O2 Flow Rate 100 06/23/21 06/23/21 06/23/21 06/23/21 13:15 13:15 13:15 13:17 Temp 36.5 36.3 Pulse 130 Resp 20 21 B/P (MAP) 152/90 Pulse Ox 94 O2 Delivery Mechanical Ventilator Mechanical Ventilator Mechanical Ventilator O2 Flow Rate 100 30.00 06/23/21 06/23/21 06/23/21 06/23/21 13:25 13:30 13:35 13:37 Pulse 149 Resp 20 23 B/P (MAP) Pulse Ox 100 O2 Delivery Mechanical Ventilator Mechanical Ventilator O2 Flow Rate 100 FiO2 40 06/23/21 06/23/21 06/23/21 06/23/21 13:45 13:45 13:45 14:00 Temp 36.6 36.9 Pulse 146 Resp 17 B/P (MAP) Pulse Ox 100 100 O2 Delivery Mechanical Ventilator Mechanical Ventilator Mechanical Ventilator Mechanical Ventilator O2 Flow Rate 100 30.00 FiO2 40 06/23/21 06/23/21 06/23/21 06/23/21 14:10 14:22 15:00 15:15 Temp 37.3 37.5 37.4 37.3 Pulse 142 146 121 142 Resp 18 18 18 18 B/P (MAP) 107/53 110/53 107/56 Pulse Ox 99 100 100 100 O2 Delivery Mechanical Ventilator Mechanical Ventilator Mechanical Ventilator Mechanical Ventilator O2 Flow Rate 30.00 FiO2 40 30 30 06/23/21 06/23/21 06/23/21 06/23/21 15:33 16:00 17:06 17:20 Temp 37.1 37.1 Pulse 123 89 92 Resp 18 17 18 B/P (MAP) 131/73 103/53 103/51 Pulse Ox 98 100 98 98 O2 Delivery Mechanical Ventilator Mechanical Ventilator Mechanical Ventilator Mechanical Ventilator FiO2 40 30 30 06/23/21 06/23/21 06/23/21 06/23/21 17:39 18:27 18:33 18:47 Temp 37.2 37.4 Pulse 90 90 84 90 Resp 17 16 18 B/P (MAP) 117/57 117/57 135/69 Pulse Ox 97 96 97 O2 Delivery Mechanical Ventilator Mechanical Ventilator FiO2 30 30 30 06/23/21 06/23/21 06/23/21 06/23/21 19:00 19:00 19:44 20:00 Temp 37.4 37.3 37.3 Pulse 92 92 80 71 Resp 18 17 18 B/P (MAP) Pulse Ox 96 97 98 O2 Delivery Mechanical Ventilator Mechanical Ventilator Mechanical Ventilator O2 Flow Rate 30.00 30.00 30.00 06/23/21 06/23/21 06/23/21 06/23/21 20:00 21:00 21:13 21:28 Temp 37.2 37.2 37.1 Pulse 65 67 68 Resp 17 18 18 B/P (MAP) 122/59 125/58 Pulse Ox 97 97 97 96 O2 Delivery Mechanical Ventilator Mechanical Ventilator Mechanical Ventilator Mechanical Ventilator O2 Flow Rate 30.00 FiO2 30 30 30 06/23/21 06/23/21 06/23/21 06/23/21 21:57 22:00 22:34 23:00 Temp 37.1 37.2 Pulse 68 67 68 80 Resp 18 18 17 B/P (MAP) 123/61 Pulse Ox 96 96 96 O2 Delivery Mechanical Ventilator Mechanical Ventilator O2 Flow Rate 30.00 21.00 FiO2 30 06/23/21 06/23/21 06/23/21 06/23/21 23:00 23:37 23:54 23:59 Temp 37.1 37.1 Pulse 62 61 Resp 18 18 B/P (MAP) 135/69 135/69 Pulse Ox 96 96 O2 Delivery Mechanical Ventilator Mechanical Ventilator Mechanical Ventilator Mechanical Ventilator O2 Flow Rate 21.00 FiO2 21 21 21 06/24/21 06/24/21 06/24/21 06/24/21 00:00 00:10 01:00 01:00 Temp 37.1 37.1 37.0 Pulse 59 58 55 55 Resp 17 18 17 B/P (MAP) 136/70 Pulse Ox 96 96 97 O2 Delivery Mechanical Ventilator Mechanical Ventilator Mechanical Ventilator O2 Flow Rate 21.00 21.00 FiO2 21 06/24/21 06/24/21 06/24/21 06/24/21 01:46 02:00 03:00 03:12 Temp 37.0 36.9 36.9 Pulse 52 52 50 59 Resp 18 B/P (MAP) 151/79 Pulse Ox 97 97 97 96 O2 Delivery Mechanical Ventilator Mechanical Ventilator Mechanical Ventilator O2 Flow Rate 21.00 21.00 FiO2 21 21 06/24/21 06/24/21 06/24/21 06/24/21 04:00 04:00 04:02 05:00 Temp 37.1 37.1 Pulse 53 59 54 Resp 14 16 B/P (MAP) 164/85 Pulse Ox 95 96 96 O2 Delivery Mechanical Ventilator Mechanical Ventilator Mechanical Ventilator O2 Flow Rate 21.00 21.00 FiO2 21 06/24/21 06/24/21 06:00 06:46 Temp 37.1 Pulse 52 59 Resp 16 18 B/P (MAP) Pulse Ox 96 95 O2 Delivery Mechanical Ventilator O2 Flow Rate 21.00 FiO2 21 Intake and Output 06/23/21 06/23/21 06/24/21 15:00 23:00 07:00 Intake Total 4151 ml 350 ml 50 ml Output Total 5800 ml 1125 ml 205 ml Balance -1649 ml -775 ml -155 ml Physical Exam: General - Oriented and Alert to time place and situation but has to be stimulated to converse Abdomen - Soft, appropriately tender to palpation, non-distended. Incision is seeping sangunious fluid Vaginal packing in place, and is seeping through slowly to pad. 3-4 pads overnight replaced. Extremities - +2-3 edema Assessment: POD1 supracervical hysterectomy due to uterine atony s/p VAVD day 1 S/p Hemorrhagic shock, hemodynamically stable at this time Thrombocytopenia Acute blood loss anemia Acute renal damage- secondary to massive colloid infusion- anticipate rapid recovery Plan: Management of ventilation per eICU- anticipate extubation this morning Hgb stable overnight, will hold on further transfusion at this point Need for platelets- unable to obtain due to national shortage, giving Igg nai per hematology INR is improving, and Fibrinogen has improved appropriately. Laboratory Tests Test 06/23/21 10:40 06/23/21 11:15 06/23/21 11:18 06/23/21 12:10 Range/Units Hemoglobin 8.8 #L 6.9 #*L 11.5-16.0 g/dL Hematocrit 27 L 21 L 35-52 % Platelet Count 51 L 130-400 10^3/uL Prothrombin Time 33.9 H 12.2-14.7 SEC INR Comment 3.3 H 0.8-1.4 Blood Gas Puncture Site LT BRACHIAL Blood Gas Patient Temperature UNK Arterial Blood pH 7.10 *L 7.37-7.43 Arterial Blood Partial Pressure CO2 38 35-45 MMHG Arterial Blood Partial Pressure O2 376 H 79-93 MMHG Arterial Blood HCO3 11 *L 23-27 MMOL/L Arterial Blood Total CO2 12.4 L 21.0-31.0 MMOL/L Arterial Blood Oxygen Saturation 100 94-100 % Arterial Blood Base Excess -16.6 L -2.5-2.5 MMOL/L Fabio Test UNK Blood Gas Ventilator Setting YES Blood Gas Inspired Oxygen UNK Test 06/23/21 14:18 06/23/21 14:29 06/23/21 19:59 06/23/21 21:24 Range/Units Blood Gas Puncture Site R FEM ARTLINE R FEM GARRY Blood Gas Patient Temperature 37.2 37.2 Arterial Blood pH 7.39 7.49 H 7.37-7.43 Arterial Blood Partial Pressure CO2 33 L 26 L 35-45 MMHG Arterial Blood Partial Pressure O2 172 H 163 H 79-93 MMHG Arterial Blood HCO3 20 L 20 L 23-27 MMOL/L Arterial Blood Total CO2 20.6 L 20.5 L 21.0-31.0 MMOL/L Arterial Blood Oxygen Saturation 100 99 94-100 % Arterial Blood Base Excess -4.4 L -3.1 L -2.5-2.5 MMOL/L Fabio Test ART LINE ART LINE Blood Gas Ventilator Setting YES YES Blood Gas Inspired Oxygen 40% 30% Hemoglobin 4.7 #*L 6.3 #*L 11.5-16.0 g/dL Hematocrit 13 *L 18 *L 35-52 % Prothrombin Time 21.0 H 19.2 H 12.2-14.7 SEC INR Comment 1.8 H 1.6 H 0.8-1.4 Fibrinogen 195 L 210 L 221-496 MG/DL White Blood Count 15.0 H 4.3-11.0 10^3/uL Red Blood Count 2.12 L 3.80-5.11 10^6/uL Mean Corpuscular Volume 85 80-99 fL Mean Corpuscular Hemoglobin 30 25-34 pg Mean Corpuscular Hemoglobin Concent 35 32-36 g/dL Red Cell Distribution Width 14.9 H 10.0-14.5 % Platelet Count 27 *L 130-400 10^3/uL Mean Platelet Volume 10.1 9.0-12.2 fL Immature Granulocyte % (Auto) 3 % Neutrophils (%) (Auto) 88 H 42-75 % Lymphocytes (%) (Auto) 7 L 12-44 % Monocytes (%) (Auto) 2 0-12 % Eosinophils (%) (Auto) 0 0-10 % Basophils (%) (Auto) 0 0-10 % Neutrophils # (Auto) 13.2 H 1.8-7.8 10^3/uL Lymphocytes # (Auto) 1.1 1.0-4.0 10^3/uL Monocytes # (Auto) 0.3 0.0-1.0 10^3/uL Eosinophils # (Auto) 0.0 0.0-0.3 10^3/uL Basophils # (Auto) 0.0 0.0-0.1 10^3/uL Immature Granulocyte # (Auto) 0.4 H 0.0-0.1 10^3/uL Neutrophils % (Manual) 87 % Lymphocytes % (Manual) 8 % Monocytes % (Manual) 1 % Band Neutrophils 4 % Percent Immature Platelet Fraction 5.8 0.0-7.6 % Polychromasia MODERATE Acanthocytes MODERATE Blood Morphology Comment NA Activated Partial Thromboplast Time 57 H 24-35 SEC D-Dimer > 120.00 H 0.00-0.49 UG/ML Sodium Level 141 135-145 MMOL/L Potassium Level 3.7 3.6-5.0 MMOL/L Chloride Level 110 H 98-107 MMOL/L Carbon Dioxide Level 17 L 21-32 MMOL/L Anion Gap 14 5-14 MMOL/L Blood Urea Nitrogen 16 7-18 MG/DL Creatinine 1.53 H 0.60-1.30 MG/DL Estimat Glomerular Filtration Rate 48 BUN/Creatinine Ratio 10 Glucose Level 89 70-105 MG/DL Calcium Level 7.4 L 8.5-10.1 MG/DL Corrected Calcium 8.5 8.5-10.1 MG/DL Total Bilirubin 1.0 0.1-1.0 MG/DL Aspartate Amino Transf (AST/SGOT) 184 H 5-34 U/L Alanine Aminotransferase (ALT/SGPT) 29 0-55 U/L Alkaline Phosphatase 41 40-136 U/L Total Protein 4.3 L 6.4-8.2 GM/DL Albumin 2.6 L 3.2-4.5 GM/DL Test 06/24/21 02:33 06/24/21 03:00 06/24/21 07:04 Range/Units Glucometer 105 70-110 MG/DL White Blood Count 17.1 H 4.3-11.0 10^3/uL Red Blood Count 2.85 L 3.80-5.11 10^6/uL Hemoglobin 8.4 #L 11.5-16.0 g/dL Hematocrit 24 L 35-52 % Mean Corpuscular Volume 83 80-99 fL Mean Corpuscular Hemoglobin 29 25-34 pg Mean Corpuscular Hemoglobin Concent 36 32-36 g/dL Red Cell Distribution Width 14.9 H 10.0-14.5 % Platelet Count 21 *L 130-400 10^3/uL Mean Platelet Volume 9.4 9.0-12.2 fL Immature Granulocyte % (Auto) 2 % Neutrophils (%) (Auto) 88 H 42-75 % Lymphocytes (%) (Auto) 9 L 12-44 % Monocytes (%) (Auto) 1 0-12 % Eosinophils (%) (Auto) 0 0-10 % Basophils (%) (Auto) 0 0-10 % Neutrophils # (Auto) 15.1 H 1.8-7.8 10^3/uL Lymphocytes # (Auto) 1.5 1.0-4.0 10^3/uL Monocytes # (Auto) 0.2 0.0-1.0 10^3/uL Eosinophils # (Auto) 0.0 0.0-0.3 10^3/uL Basophils # (Auto) 0.0 0.0-0.1 10^3/uL Immature Granulocyte # (Auto) 0.3 H 0.0-0.1 10^3/uL Percent Immature Platelet Fraction 8.5 H 0.0-7.6 % Prothrombin Time 16.1 H 12.2-14.7 SEC INR Comment 1.3 0.8-1.4 Activated Partial Thromboplast Time 46 H 24-35 SEC Blood Gas Puncture Site R FEM GARRY Blood Gas Patient Temperature 36.8 Arterial Blood pH 7.49 H 7.37-7.43 Arterial Blood Partial Pressure CO2 24 L 35-45 MMHG Arterial Blood Partial Pressure O2 124 H 79-93 MMHG Arterial Blood HCO3 18 L 23-27 MMOL/L Arterial Blood Total CO2 18.8 L 21.0-31.0 MMOL/L Arterial Blood Oxygen Saturation 99 94-100 % Arterial Blood Base Excess -4.8 L -2.5-2.5 MMOL/L Fabio Test ART LINE Blood Gas Ventilator Setting YES Blood Gas Inspired Oxygen 21% Sodium Level 140 135-145 MMOL/L Potassium Level 3.8 3.6-5.0 MMOL/L Chloride Level 114 H 98-107 MMOL/L Carbon Dioxide Level 15 L 21-32 MMOL/L Anion Gap 11 5-14 MMOL/L Blood Urea Nitrogen 19 H 7-18 MG/DL Creatinine 1.75 H 0.60-1.30 MG/DL Estimat Glomerular Filtration Rate 41 BUN/Creatinine Ratio 11 Glucose Level 110 H 70-105 MG/DL Calcium Level 6.9 L 8.5-10.1 MG/DL Corrected Calcium 8.3 L 8.5-10.1 MG/DL Total Bilirubin 0.8 0.1-1.0 MG/DL Aspartate Amino Transf (AST/SGOT) 212 H 5-34 U/L Alanine Aminotransferase (ALT/SGPT) 56 H 0-55 U/L Alkaline Phosphatase 43 40-136 U/L Total Protein 4.1 L 6.4-8.2 GM/DL Albumin 2.3 L 3.2-4.5 GM/DL Vitals - Labs Vital Signs - I&O Vital Signs Date Time Temp Pulse Resp B/P (MAP) Pulse Ox O2 Delivery O2 Flow Rate FiO2 06/24/21 06:46 59 18 95 21 06/24/21 06:00 37.1 52 16 96 Mechanical Ventilator 21.00 06/24/21 05:00 37.1 54 16 96 Mechanical Ventilator 21.00 06/24/21 04:02 59 164/85 06/24/21 04:00 37.1 53 14 96 Mechanical Ventilator 21.00 06/24/21 04:00 95 Mechanical Ventilator 21 06/24/21 03:12 59 22 96 21 06/24/21 03:00 36.9 50 18 97 Mechanical Ventilator 21.00 06/24/21 02:00 36.9 52 17 97 Mechanical Ventilator 21.00 06/24/21 01:46 37.0 52 18 151/79 97 Mechanical Ventilator 21 06/24/21 01:00 37.0 55 17 97 Mechanical Ventilator 21.00 06/24/21 01:00 55 06/24/21 00:10 37.1 58 18 136/70 96 Mechanical Ventilator 21 06/24/21 00:00 37.1 59 17 96 Mechanical Ventilator 21.00 06/23/21 23:59 96 Mechanical Ventilator 21 06/23/21 23:54 37.1 61 18 135/69 96 Mechanical Ventilator 21 06/23/21 23:37 37.1 62 18 135/69 Mechanical Ventilator 21 06/23/21 23:00 Mechanical Ventilator 21.00 06/23/21 23:00 37.2 80 17 96 Mechanical Ventilator 21.00 06/23/21 22:34 68 123/61 06/23/21 22:00 37.1 67 18 96 Mechanical Ventilator 30.00 06/23/21 21:57 68 18 96 30 06/23/21 21:28 37.1 68 18 125/58 96 Mechanical Ventilator 30 06/23/21 21:13 37.2 67 18 122/59 97 Mechanical Ventilator 30 06/23/21 21:00 37.2 65 17 97 Mechanical Ventilator 30.00 06/23/21 20:00 97 Mechanical Ventilator 30 06/23/21 20:00 37.3 71 18 98 Mechanical Ventilator 30.00 06/23/21 19:44 37.3 80 17 97 Mechanical Ventilator 30.00 06/23/21 19:00 37.4 92 18 96 Mechanical Ventilator 30.00 06/23/21 19:00 92 06/23/21 18:47 90 18 97 30 06/23/21 18:33 37.4 84 16 135/69 96 Mechanical Ventilator 30 06/23/21 18:27 90 117/57 06/23/21 17:39 37.2 90 17 117/57 97 Mechanical Ventilator 30 06/23/21 17:20 37.1 92 18 103/51 98 Mechanical Ventilator 30 06/23/21 17:06 37.1 89 17 103/53 98 Mechanical Ventilator 30 06/23/21 16:00 100 Mechanical Ventilator 40 06/23/21 15:33 123 18 131/73 98 Mechanical Ventilator 06/23/21 15:15 37.3 142 18 107/56 100 Mechanical Ventilator 30 06/23/21 15:00 37.4 121 18 100 Mechanical Ventilator 30.00 06/23/21 14:22 37.5 146 18 110/53 100 Mechanical Ventilator 30 06/23/21 14:10 37.3 142 18 107/53 99 Mechanical Ventilator 40 06/23/21 14:00 36.9 146 17 100 Mechanical Ventilator 30.00 06/23/21 13:45 Mechanical Ventilator 100 06/23/21 13:45 36.6 Mechanical Ventilator 06/23/21 13:45 100 Mechanical Ventilator 40 06/23/21 13:37 149 23 100 40 06/23/21 13:35 20 06/23/21 13:30 Mechanical Ventilator 100 06/23/21 13:25 20 Mechanical Ventilator 06/23/21 13:17 152/90 06/23/21 13:15 36.3 130 21 94 Mechanical Ventilator 30.00 06/23/21 13:15 36.5 20 Mechanical Ventilator 06/23/21 13:15 Mechanical Ventilator 100 06/23/21 13:00 136 06/23/21 13:00 20 168/100 (122) 100 Mechanical Ventilator 06/23/21 13:00 Mechanical Ventilator 100 06/23/21 12:55 20 146/110 (122) 100 Mechanical Ventilator 06/23/21 12:45 36.1 20 169/86 (113) 100 Mechanical Ventilator 06/23/21 12:45 Mechanical Ventilator 100 06/23/21 09:42 131 18 88/47 (61) 100 Non Rebreather 10.00 06/23/21 09:39 126 18 94/46 (62) 100 Non Rebreather 10.00 06/23/21 09:37 144 18 107/70 (82) 100 Non Rebreather 10.00 06/23/21 09:31 121 18 119/59 (79) 100 Non Rebreather 10.00 06/23/21 09:29 118 18 106/69 (81) 100 Non Rebreather 10.00 06/23/21 09:13 99 18 117/62 (80) 100 Room Air 06/23/21 09:11 99 18 117/59 (78) 98 Room Air 06/23/21 09:08 38.5 157 18 162/96 (118) 100 Room Air 06/23/21 08:57 134 18 143/68 (93) 100 Room Air 06/23/21 08:45 71 18 130/63 (85) Room Air 06/23/21 08:30 71 18 129/76 (93) 100 Room Air 06/23/21 08:15 37.1 85 18 120/88 (99) 100 Room Air 06/23/21 08:00 75 18 128/65 (86) 100 Room Air 06/23/21 07:45 68 18 120/64 (82) 100 Room Air 06/23/21 07:30 71 18 100 Room Air I & O 06/24/21 07:00 Intake Total 4551 ml Output Total 7130 ml Balance -2579 ml Labs Laboratory Tests 06/23/21 10:40: Hemoglobin 8.8#L, Hematocrit 27L, Platelet Count 51L 06/23/21 11:15: Prothrombin Time 33.9H, INR Comment 3.3H 06/23/21 11:18: Blood Gas Puncture Site LT BRACHIAL, Blood Gas Patient Temperature UNK, Arterial Blood pH 7.10*L, Arterial Blood Partial Pressure CO2 38, Arterial Blood Partial Pressure O2 376H, Arterial Blood HCO3 11*L, Arterial Blood Total CO2 12.4L, Arterial Blood Oxygen Saturation 100, Arterial Blood Base Excess -16.6L, Fabio Test UNK, Blood Gas Ventilator Setting YES, Blood Gas Inspired Oxygen UNK 06/23/21 12:10: Hemoglobin 6.9#*L, Hematocrit 21L 06/23/21 14:18: Blood Gas Puncture Site R FEM ARTLINE, Blood Gas Patient Temperature 37.2, Arterial Blood pH 7.39, Arterial Blood Partial Pressure CO2 33L, Arterial Blood Partial Pressure O2 172H, Arterial Blood HCO3 20L, Arterial Blood Total CO2 20.6L, Arterial Blood Oxygen Saturation 100, Arterial Blood Base Excess -4.4L, Fabio Test ART LINE, Blood Gas Ventilator Setting YES, Blood Gas Inspired Oxygen 40% 06/23/21 14:29: Hemoglobin 4.7#*L, Hematocrit 13*L, Prothrombin Time 21.0H, INR Comment 1.8H, Fibrinogen 195L 06/23/21 19:59: Hemoglobin 6.3#*L, Hematocrit 18*L, Prothrombin Time 19.2H, INR Comment 1.6H, Fibrinogen 210L, White Blood Count 15.0H, Red Blood Count 2.12L, Mean Corpuscular Volume 85, Mean Corpuscular Hemoglobin 30, Mean Corpuscular Hemoglobin Concent 35, Red Cell Distribution Width 14.9H, Platelet Count 27*L, Mean Platelet Volume 10.1, Immature Granulocyte % (Auto) 3, Neutrophils (%) (Auto) 88H, Lymphocytes (%) (Auto) 7L, Monocytes (%) (Auto) 2, Eosinophils (%) (Auto) 0, Basophils (%) (Auto) 0, Neutrophils # (Auto) 13.2H, Lymphocytes # (Auto) 1.1, Monocytes # (Auto) 0.3, Eosinophils # (Auto) 0.0, Basophils # (Auto) 0.0, Immature Granulocyte # (Auto) 0.4H, Neutrophils % (Manual) 87, Lymphocytes % (Manual) 8, Monocytes % (Manual) 1, Band Neutrophils 4, Percent Immature Platelet Fraction 5.8, Polychromasia MODERATE, Acanthocytes MODERATE, Blood Morphology Comment NA, Activated Partial Thromboplast Time 57H, D-Dimer > 120.00H, Sodium Level 141, Potassium Level 3.7, Chloride Level 110H, Carbon Dioxide Level 17L, Anion Gap 14, Blood Urea Nitrogen 16, Creatinine 1.53H, Estimat Glomerular Filtration Rate 48, BUN/Creatinine Ratio 10, Glucose Level 89, Calcium Level 7.4L, Corrected Calcium 8.5, Total Bilirubin 1.0, Aspartate Amino Transf (AST/SGOT) 184H, Alanine Aminotransferase (ALT/SGPT) 29, Alkaline Phosphatase 41, Total Protein 4.3L, Albumin 2.6L 06/23/21 21:24: Blood Gas Puncture Site R [facility], Blood Gas Patient Temperature 37.2, Arterial Blood pH 7.49H, Arterial Blood Partial Pressure CO2 26L, Arterial Blood Partial Pressure O2 163H, Arterial Blood HCO3 20L, Arterial Blood Total CO2 20.5L, Arterial Blood Oxygen Saturation 99, Arterial Blood Base Excess -3.1L, Fabio Test ART LINE, Blood Gas Ventilator Setting YES, Blood Gas Inspired Oxygen 30% 06/24/21 02:33: Glucometer 105 06/24/21 03:00: White Blood Count 17.1H, Red Blood Count 2.85L, Hemoglobin 8.4#L, Hematocrit 24L , Mean Corpuscular Volume 83, Mean Corpuscular Hemoglobin 29, Mean Corpuscular Hemoglobin Concent 36, Red Cell Distribution Width 14.9H, Platelet Count 21*L, Mean Platelet Volume 9.4, Immature Granulocyte % (Auto) 2, Neutrophils (%) (Auto) 88H, Lymphocytes (%) (Auto) 9L, Monocytes (%) (Auto) 1, Eosinophils (%) (Auto) 0, Basophils (%) (Auto) 0, Neutrophils # (Auto) 15.1H, Lymphocytes # (Auto) 1.5, Monocytes # (Auto) 0.2, Eosinophils # (Auto) 0.0, Basophils # (Auto) 0.0, Immature Granulocyte # (Auto) 0.3H, Percent Immature Platelet Fraction 8.5H , Prothrombin Time 16.1H, INR Comment 1.3, Activated Partial Thromboplast Time 46H, Blood Gas Puncture Site R FEM GARRY, Blood Gas Patient Temperature 36.8, Arterial Blood pH 7.49H, Arterial Blood Partial Pressure CO2 24L, Arterial Blood Partial Pressure O2 124H, Arterial Blood HCO3 18L, Arterial Blood Total CO2 18.8L, Arterial Blood Oxygen Saturation 99, Arterial Blood Base Excess -4.8L, Fabio Test ART LINE, Blood Gas Ventilator Setting YES, Blood Gas Inspired Oxygen 21%, Sodium Level 140, Potassium Level 3.8, Chloride Level 114H, Carbon Dioxide Level 15L, Anion Gap 11, Blood Urea Nitrogen 19H, Creatinine 1.75H, Estimat Glomerular Filtration Rate 41, BUN/Creatinine Ratio 11, Glucose Level 110H, Calcium Level 6.9L, Corrected Calcium 8.3L, Total Bilirubin 0.8, Aspartate Amino Transf (AST/SGOT) 212H, Alanine Aminotransferase (ALT/SGPT) 56H, Alkaline Phosphatase 43, Total Protein 4.1L, Albumin 2.3L 06/24/21 07:04: SENG RAMIREZ DO Jun 24, 2021 07:30
--- NOTE | 2021-06-24 07:41 | Diagnostic Imaging Report ---
CHEST 1 VIEW, AP/PA ONLY Indication: Respiratory failure Comparison: 06/23/2021 Findings: Stable ET and enteric tubes. Stable left IJ central venous catheter. Question of pneumoperitoneum. Stable cardiac silhouette. Lungs are clear. Impression: 1. Stable support devices. 2. Question of pneumoperitoneum. Correlation with patient's history is suggested, particularly any recent surgical history. Dictated by: Dictated on workstation # [id number]
[2021-06-24 08:16] LABS: BASOPHILS % (AUTO) 0 % (0-10); EOSINOPHILS % (AUTO) 0 % (0-10); MEAN CORPUSCULAR HEMOGLOBIN 30 pg (25-34); MEAN CORPUSCULAR HGB CONC 36 g/dL (32-36); MEAN CORPUSCULAR VOLUME 82 fL (80-99); NEUTROPHILS % (AUTO) 87 % (42-75)
[2021-06-24 08:18] LABS: LYMPHOCYTES # (AUTO) 1.7 10^3/uL (1.0-4.0); LYMPHOCYTES % (AUTO) 10 % (12-44); MEAN PLATELET VOLUME 11.6 fL (9.0-12.2); MONOCYTES # (AUTO) 0.3 10^3/uL (0.0-1.0); MONOCYTES % (AUTO) 2 % (0-12); NEUTROPHILS # (AUTO) 15.4 10^3/uL (1.8-7.8); WHITE BLOOD COUNT 17.7 10^3/uL (4.3-11.0)
[2021-06-24 08:22] LABS: HEMATOCRIT 19 % (35-52)
[2021-06-24 08:23] LABS: PLATELET COUNT 22 10^3/uL (130-400)
[2021-06-24] MEDS ORDERED: PANTOPRAZOLE 40 MG (PROTONIX) VIAL IV SCH (09:00)
--- NOTE | 2021-06-24 09:04 | Oncology Consultation ---
Visit Information Visit Information Date of Admission Jun 22, 2021 at 19:11 Attending Physician Solomon Webb DO Admitting Physician No,Local Physician Chief Complaint massive bleeding. Covid + Interval History 25 year old female had delivery on 06/22/2021 and complicated with massive bleeding and Hb dropped from normal to 4. Pt was intubated. Plt dropped from normal 227 to 27 last night. She required 7 units of RBC, 4 units FFP, 1 Cyro and 1 plts. Her Plt is 22 this morning. I consulted the patient on: 06/24/21 09:04 Time Seen by Provider: 08:30 Review of Systems Constitutional: no symptoms reported Health Status Allergies Coded Allergies: No Known Drug Allergies (Unverified , 06/22/21) Home Medications Ferrous Sulfate (Iron) 325 Mg Tablet, 325 MG PO DAILY, (Reported) Vit No.124/Iron/FA ( Vitamin Tablet) 1 Each Tablet, 1 EACH PO DAILY, (Reported) GAE-Hhntet-Pwbvft Hx Patient Social History Smoking Status: Never a Smoker Alcohol Use?: No Have you traveled recently?: No Family Medical History Significant Family History: No Pertinent Family Hx Physical Exam Vital Signs Vital Signs - First Documented 06/22/21 06/23/21 06/23/21 19:50 09:29 13:37 Temp 36.9 Pulse 116 Resp 18 B/P (MAP) 124/77 (93) Pulse Ox 98 O2 Delivery Room Air O2 Flow Rate 10.00 FiO2 40 Capillary Refill : Less Than 3 Seconds Height, Weight, BMI Height: '" Weight: lbs. oz. kg; 31.55 BMI Method: General Appearance: Other (Pt is on vent, sedated. vital stable) Data Review Labs Laboratory Tests 06/22/21 20:05: White Blood Count 11.6H, Neutrophils (%) (Auto) 83H, Lymphocytes (%) (Auto) 11L, Neutrophils # (Auto) 9.6H 06/23/21 10:40: Hemoglobin 8.8#L, Hematocrit 27L, Platelet Count 51L 06/23/21 11:15: Prothrombin Time 33.9H, INR Comment 3.3H 06/23/21 11:18: Arterial Blood pH 7.10*L, Arterial Blood Partial Pressure O2 376H, Arterial Blood HCO3 11*L, Arterial Blood Total CO2 12.4L, Arterial Blood Base Excess - 16.6L 06/23/21 12:10: Hemoglobin 6.9#*L, Hematocrit 21L 06/23/21 14:18: Arterial Blood Partial Pressure CO2 33L, Arterial Blood Partial Pressure O2 172H , Arterial Blood HCO3 20L, Arterial Blood Total CO2 20.6L, Arterial Blood Base Excess -4.4L 06/23/21 14:29: Hemoglobin 4.7#*L, Hematocrit 13*L, Platelet Count 88L, Prothrombin Time 21.0H, INR Comment 1.8H, Fibrinogen 195L 06/23/21 19:59: Hemoglobin 6.3#*L, Hematocrit 18*L, Platelet Count 27*L, Prothrombin Time 19.2H, INR Comment 1.6H, Fibrinogen 210L, White Blood Count 15.0H, Red Blood Count 2.12L, Red Cell Distribution Width 14.9H, Neutrophils (%) (Auto) 88H, Lymphocytes (%) (Auto) 7L, Neutrophils # (Auto) 13.2H, Immature Granulocyte # (Auto) 0.4H, Activated Partial Thromboplast Time 57H, D-Dimer > 120.00H, Chloride Level 110H, Carbon Dioxide Level 17L, Creatinine 1.53H, Calcium Level 7.4L, Aspartate Amino Transf (AST/SGOT) 184H, Total Protein 4.3L, Albumin 2.6L 06/23/21 21:24: Arterial Blood pH 7.49H, Arterial Blood Partial Pressure CO2 26L, Arterial Blood Partial Pressure O2 163H, Arterial Blood HCO3 20L, Arterial Blood Total CO2 20.5L, Arterial Blood Base Excess -3.1L 06/24/21 02:33: 06/24/21 03:00: Arterial Blood pH 7.49H, Arterial Blood Partial Pressure CO2 24L, Arterial Blood Partial Pressure O2 124H, Arterial Blood HCO3 18L, Arterial Blood Total CO2 18.8L, Arterial Blood Base Excess -4.8L, White Blood Count 17.1H, Red Blood Count 2.85L, Hemoglobin 8.4#L, Hematocrit 24L, Red Cell Distribution Width 14.9H , Platelet Count 21*L, Neutrophils (%) (Auto) 88H, Lymphocytes (%) (Auto) 9L, Neutrophils # (Auto) 15.1H, Immature Granulocyte # (Auto) 0.3H, Percent Immature Platelet Fraction 8.5H, Prothrombin Time 16.1H, Activated Partial Thromboplast Time 46H, Chloride Level 114H, Carbon Dioxide Level 15L, Blood Urea Nitrogen 19H , Creatinine 1.75H, Glucose Level 110H, Calcium Level 6.9L, Corrected Calcium 8.3L, Aspartate Amino Transf (AST/SGOT) 212H, Alanine Aminotransferase (ALT/SGPT) 56H, Total Protein 4.1L, Albumin 2.3L 06/24/21 07:04: SARS-CoV-2 RNA (RT-PCR) DetectedH 06/24/21 08:10: White Blood Count 17.7H, Red Blood Count 2.35L, Hemoglobin 7.0L, Hematocrit 19*L , Red Cell Distribution Width 15.3H, Platelet Count 22*L, Neutrophils (%) (Auto) 87H, Lymphocytes (%) (Auto) 10L, Neutrophils # (Auto) 15.4H, Immature Granulocyte # (Auto) 0.2H, Percent Immature Platelet Fraction 10.7H 06/25/21 09:08: 06/25/21 12:55: Impression & Plan Impression & Plan IMP: 1. bleeding on ventilator 2. ITP 3. Covid+ 4. Acute renal failure. 5. s/p hysterectomy Rec: 1. Decadron 40mg IV daily for 4 days 2. IVIG 80g IV 3. Plan to transfer patient to tertiary center for the care. OUMAR METZGER MD Jun 24, 2021 09:04
--- NOTE | 2021-06-24 09:30 | Tele-ICU Progress Note ---
Subjective Date Seen by a Provider: Jun 24, 2021 Time Seen by a Provider: 09:30 Subjective/Events-last exam BY THE TIME I WAS ABLE TO CONTACT PULMONOLOGIST/INTENSIVIST PT IS TRANSFERED OUT TO ANOTHER HOSPITAL. Sepsis Event Evaluation Height, Weight, BMI Height: '" Weight: lbs. oz. kg; 31.55 BMI Method: Exam Exam Patient acknowledged, consented, and participated in this virtual visit which was conducted using real time audio/video Vital Signs Date Time Temp Pulse Resp B/P (MAP) Pulse Ox O2 Delivery O2 Flow Rate FiO2 06/24/21 08:00 36.8 06/24/21 06:46 59 18 95 21 06/24/21 06:00 37.1 52 16 96 Mechanical Ventilator 21.00 06/24/21 05:00 37.1 54 16 96 Mechanical Ventilator 21.00 06/24/21 04:02 59 164/85 06/24/21 04:00 37.1 53 14 96 Mechanical Ventilator 21.00 06/24/21 04:00 95 Mechanical Ventilator 21 06/24/21 03:12 59 22 96 21 06/24/21 03:00 36.9 50 18 97 Mechanical Ventilator 21.00 06/24/21 02:00 36.9 52 17 97 Mechanical Ventilator 21.00 06/24/21 01:46 37.0 52 18 151/79 97 Mechanical Ventilator 21 06/24/21 01:00 37.0 55 17 97 Mechanical Ventilator 21.00 06/24/21 01:00 55 06/24/21 00:10 37.1 58 18 136/70 96 Mechanical Ventilator 21 06/24/21 00:00 37.1 59 17 96 Mechanical Ventilator 21.00 06/23/21 23:59 96 Mechanical Ventilator 21 06/23/21 23:54 37.1 61 18 135/69 96 Mechanical Ventilator 21 06/23/21 23:37 37.1 62 18 135/69 Mechanical Ventilator 21 06/23/21 23:00 Mechanical Ventilator 21.00 06/23/21 23:00 37.2 80 17 96 Mechanical Ventilator 21.00 06/23/21 22:34 68 123/61 06/23/21 22:00 37.1 67 18 96 Mechanical Ventilator 30.00 06/23/21 21:57 68 18 96 30 06/23/21 21:28 37.1 68 18 125/58 96 Mechanical Ventilator 30 06/23/21 21:13 37.2 67 18 122/59 97 Mechanical Ventilator 30 06/23/21 21:00 37.2 65 17 97 Mechanical Ventilator 30.00 06/23/21 20:00 97 Mechanical Ventilator 30 06/23/21 20:00 37.3 71 18 98 Mechanical Ventilator 30.00 06/23/21 19:44 37.3 80 17 97 Mechanical Ventilator 30.00 06/23/21 19:00 37.4 92 18 96 Mechanical Ventilator 30.00 06/23/21 19:00 92 06/23/21 18:47 90 18 97 30 06/23/21 18:33 37.4 84 16 135/69 96 Mechanical Ventilator 30 06/23/21 18:27 90 117/57 06/23/21 17:39 37.2 90 17 117/57 97 Mechanical Ventilator 30 06/23/21 17:20 37.1 92 18 103/51 98 Mechanical Ventilator 30 06/23/21 17:06 37.1 89 17 103/53 98 Mechanical Ventilator 30 06/23/21 16:00 100 Mechanical Ventilator 40 06/23/21 15:33 123 18 131/73 98 Mechanical Ventilator 06/23/21 15:15 37.3 142 18 107/56 100 Mechanical Ventilator 30 06/23/21 15:00 37.4 121 18 100 Mechanical Ventilator 30.00 06/23/21 14:22 37.5 146 18 110/53 100 Mechanical Ventilator 30 06/23/21 14:10 37.3 142 18 107/53 99 Mechanical Ventilator 40 06/23/21 14:00 36.9 146 17 100 Mechanical Ventilator 30.00 06/23/21 13:45 Mechanical Ventilator 100 06/23/21 13:45 36.6 Mechanical Ventilator 06/23/21 13:45 100 Mechanical Ventilator 40 06/23/21 13:37 149 23 100 40 06/23/21 13:35 20 06/23/21 13:30 Mechanical Ventilator 100 06/23/21 13:25 20 Mechanical Ventilator 06/23/21 13:17 152/90 06/23/21 13:15 36.3 130 21 94 Mechanical Ventilator 30.00 06/23/21 13:15 36.5 20 Mechanical Ventilator 06/23/21 13:15 Mechanical Ventilator 100 06/23/21 13:00 136 06/23/21 13:00 20 168/100 (122) 100 Mechanical Ventilator 06/23/21 13:00 Mechanical Ventilator 100 06/23/21 12:55 20 146/110 (122) 100 Mechanical Ventilator 06/23/21 12:45 36.1 20 169/86 (113) 100 Mechanical Ventilator 06/23/21 12:45 Mechanical Ventilator 100 06/23/21 09:42 131 18 88/47 (61) 100 Non Rebreather 10.00 06/23/21 09:39 126 18 94/46 (62) 100 Non Rebreather 10.00 06/23/21 09:37 144 18 107/70 (82) 100 Non Rebreather 10.00 06/23/21 09:31 121 18 119/59 (79) 100 Non Rebreather 10.00 I & O0 06/24/21 07:00 Intake Total 5951 ml Output Total 7130 ml Balance -1179 ml Height & Weight Height: '" Weight: lbs. oz. kg; 31.55 BMI Method: General Appearance: No Apparent Distress, WD/WN, Moderate Distress, Other (intubated and sedated) HEENT: Other (ET tube in place) Neck: Normal Inspection, Supple Respiratory: No Respiratory Distress, Rhonci Cardiovascular: No Murmur, Tachycardia (regular rhythm) Capillary Refill: Less Than 3 Seconds Extremity: Normal Inspection, No Pedal Edema Neurologic/Psychiatric: Other (sedated) Skin: Warm/Dry, Pallor Results Lab Laboratory Tests 06/22/21 20:05 06/23/21 10:40 06/23/21 12:10 06/23/21 14:29 06/23/21 19:59 06/24/21 03:00 06/24/21 08:10 Assessment/Plan Assessment/Plan PT TRANSFERRED TO ANOTHER HOSPITAL Critical Care: Critically Ill Patient DEVEN PIEDRA MD Jun 24, 2021 09:30
--- NOTE | 2021-06-24 12:03 | Progress Note - Hospitalist ---
MICA GARCES A MED STUDENT 06/24/21 1203: Subjective HPI/CC On Admission Date Seen by Provider: Jun 24, 2021 Time Seen by Provider: 08:00 Elisabeth Reynoso is a 25 year old female with no significant past medical history who presented for induction of labor at 40 weeks gestation. She had a successful vaginal requiring low vacuum extraction due to ineffective pushing. She had bleeding due to uterine atony. She had a significant blood loss estimated at 5 liters. She required emergent hysterectomy to alcira the blood loss. The massive transfusion protocol was initiated and she has received 5 units PRBC, 5 units FFP, 1 unit platelets, and 1 unit cryoprecipitate. She has another unit of PRBC waiting to transfuse. She is intubated and sedated with low ventilator requirements. She is hemodynamically stable without pressor support. Subjective/Events-last exam Pt is alert and oriented upon examination after being extubated this morning. Pt reports understanding of events that transpired yesterday. Pt denies SOA or chest pain. Pt reports no pain around abdominal incision. Review of Systems General: No Chills, No Fatigue HEENT: No Head Aches, No Visual Changes Pulmonary: No Dyspnea, No Cough Cardiovascular: No: Chest Pain, Palpitations Gastrointestinal: No: Nausea, Vomiting, Abdominal Pain Genitourinary: No Dysuria, No Frequency Objective Exam Vital Signs Vital Signs Date Time Temp Pulse Resp B/P (MAP) Pulse Ox O2 Delivery O2 Flow Rate FiO2 06/24/21 10:00 37.2 74 28 88 Mechanical Ventilator 21.00 06/24/21 08:00 21 Capillary Refill : Less Than 3 Seconds General Appearance: No Apparent Distress, WD/WN HEENT: PERRL/EOMI Respiratory: Chest Non Tender, Lungs Clear, Normal Breath Sounds Cardiovascular: Regular Rate, Rhythm, No Murmur Gastrointestinal: Normal Bowel Sounds, Non Tender, Soft Extremity: Pedal Edema (mild LE edema bilaterally) Neurologic/Psychiatric: Alert, Oriented x3 Skin: Normal Color, Warm/Dry Results/Procedures Lab Laboratory Tests 06/23/21 12:10 06/23/21 14:29 06/23/21 19:59 06/24/21 03:00 06/24/21 08:10 Patient resulted labs reviewed. Imaging: Reviewed Imaging Report Assessment/Plan Assessment and Plan Assess & Plan/Chief Complaint Hemorrhagic Shock DIC Acute blood loss anemia hemorrhage Uterine atony Thrombocytopenia Endotracheal intubation Induction at 40 wga Vacuum assisted delivery S/p hysterectomy Hemorrhagic Shock -Blood pressure stable -Extubated and alert/oriented DIC with thrombocytopenia -Platelets at 21 -Needs platelets, but nationwide shortage -PT 16.1, INR 1.3, PTT 46 Acute blood loss anemia -H&H improving with 7 untis PRBCs hemorrhage Uterine atony Endotracheal intubation Induction at 40 wga Vacuum assisted delivery S/p hysterectomy Pt being transferred to another facility in [facility] SUMMER GUTIERREZ MD 06/24/21 1751: Subjective HPI/CC On Admission Time Seen by Provider: 10:15 Assessment/Plan Assessment and Plan Assess & Plan/Chief Complaint Admitted with hemorrhagic shock due to uterine atony with DIC likely related to COVID-19. Hemodynamics and labs improved. Remains severely thrombocytopenic with ongoing bleeding from abdominal incision. Transferring to [place] for ongoing care. Critical Care: Critically Ill Patient Diagnosis/Problems Diagnosis/Problems (1) Hemorrhagic shock Status: Acute (2) atony of uterus with hemorrhage Status: Acute (3) ABLA (acute blood loss anemia) Status: Acute (4) DIC (disseminated intravascular coagulation) Status: Acute (5) COVID-19 Status: Acute Supervisory-Addendum Brief Verification & Attestation Participated in pt care: history, MDM, physical Personally performed: exam, history, MDM, supervision of care Care discussed with: Medical Student Procedures: n/a Results interpretation: Verified all documentation A medical student performed and documented this service in my presence. I reviewed and verified all information documented by the medical student and made modifications to such information, when appropriate. I personally performed the physical exam and medical decision making. MICA GARCES A MED STUDENT Jun 24, 2021 12:03 SUMMER GUTIERREZ MD Jun 24, 2021 17:51
--- NOTE | 2021-06-24 12:56 | Anesthesia-General Post-Op ---
General Significant Intra-Op Events Notes Pt had significant post- and intraop hemorrhage. National shortage of blood products left no platelets available. Patient was given 4 U pRBC's and 2 U FFP in the OR. Also given two 50 ml bags of Albumin 25% intraop. Phenylephrine drip was able to be titrated off in the OR. Taken to ICU intubated with O2, transport circuit and monitors. Patient Condition Mental Status/LOC: Same as Preop (Off sedation and extubated. Awake, alert and oriented. ) Cardiovascular: Satisfactory Nausea/Vomiting: Absent Respiratory: Satisfactory (Extubated this am and breathing well. COVID +) Pain: Controlled Complications: Absent Post Op Complications Complications None Follow Up Care/Instructions Patient Instructions None needed. Anesthesia/Patient Condition Patient Condition Patient was seen this morning, still intubated but off sedation. States she was breathing well and nurse said planned for extubation withing the hour. Patient was moving both legs on command and denied any back or leg pain. Her epidural catheter was D/C'd after the surgery. I returned to ICU just before she was transferred to [place]. She was extubated and having no respiratory distress. She again denied any back/leg pain, numbness in her legs, and she was able to move both legs without difficulty. The flight nurses were given report to pass on that the catheter was D/C'd and now platelet count is 21-22,000. She denied any nausea and had some lower abdominal pain, which is to be expected. WILFREDO SANCHEZ DO Jun 24, 2021 12:56
[2021-06-24] MEDS ORDERED: ALBUMIN 25% 25 GM/100 ML 100 ML IV SCH (14:00)
[2021-06-25] MEDS ORDERED: IVIG IV SCH ×2 (07:00)
== END 2021-06-24 11:30 | disposition short-term general hospital (02) | DRG 768 ==
LOC: LDRP 19:11 → ICU 06-23 12:27
PROVIDERS: ADMIT Obstetrics & Gynecology; ATTEND Obstetrics & Gynecology
PROC: 3E0DXGC Introduction of Other Therapeutic Substance into Mouth and Pharynx, External Approach (ICD-10-PCS; 2021-06-22)
PROC: 0W8NXZZ Division of Female Perineum, External Approach (ICD-10-PCS; 2021-06-23)
PROC: 5A1935Z Respiratory Ventilation, Less than 24 Consecutive Hours (ICD-10-PCS; 2021-06-23)
PROC: 0UT90ZL Resection of Uterus, Supracervical, Open Approach (ICD-10-PCS; principal; 2021-06-23 10:00)
PROC: 10D07Z6 Extraction of Products of Conception, Vacuum, Via Natural or Artificial Opening (ICD-10-PCS; 2021-06-23 10:00)
DX: O48.0 Post-term pregnancy (principal); Z37.0 Single live birth; O75.1 Shock during or following labor and delivery; O67.0 Intrapartum hemorrhage with coagulation defect; U07.1 COVID-19; J96.00 Acute respiratory failure, unspecified whether with hypoxia or hypercapnia; O72.1 Other immediate postpartum hemorrhage; D62 Acute posthemorrhagic anemia; D69.3 Immune thrombocytopenic purpura; N17.9 Acute kidney failure, unspecified; O68 Labor and delivery complicated by abnormality of fetal acid-base balance; O98.52 Other viral diseases complicating childbirth; O90.81 Anemia of the puerperium; O99.892 Other specified diseases and conditions complicating childbirth; O99.52 Diseases of the respiratory system complicating childbirth; O99.824 Streptococcus B carrier state complicating childbirth; O76 Abnormality in fetal heart rate and rhythm complicating labor and delivery; O75.81 Maternal exhaustion complicating labor and delivery; Z3A.40 40 weeks gestation of pregnancy
CPT/HCPCS: 36415; 71045; 80053; 82805; 82947; 85007; 85014; 85018; 85025; 85027; 85049; 85379; 85384; 85610; 85730; 86850; 86900; 86901; 86920; 86927; 87636; 94002; 94003; 94799; J1459

== ENCOUNTER → 2021-11-04 | Outpatient (CLI) | payer BC ==
[~2021-11-04] MED LIST: FERR-84 PO; PREN-142 PO
[2021-11-04 14:00] LABS: BILIRUBIN,URINE NEGATIVE (NEGATIVE); CLARITY,URINE CLEAR; COLOR,URINE YELLOW; GLUCOSE, URINE (UA) NEGATIVE (NEGATIVE); KETONES,URINE NEGATIVE (NEGATIVE); LEUKOCYTE ESTERASE ,URINE NEGATIVE (NEGATIVE); NITRITE,URINE NEGATIVE (NEGATIVE); PROTEIN,URINE NEGATIVE (NEGATIVE)
[2021-11-04 14:02] LABS: BASOPHILS # (AUTO) 0.1 10^3/uL (0.0-0.1); BASOPHILS % (AUTO) 1 % (0-10); EOSINOPHILS # (AUTO) 0.3 10^3/uL (0.0-0.3); EOSINOPHILS % (AUTO) 4 % (0-10); HEMATOCRIT 40 % (35-52); HEMOGLOBIN 13.8 g/dL (11.5-16.0); LYMPHOCYTES # (AUTO) 1.6 10^3/uL (1.0-4.0); LYMPHOCYTES % (AUTO) 21 % (12-44); MEAN CORPUSCULAR HEMOGLOBIN 31 pg (25-34); MEAN CORPUSCULAR HGB CONC 35 g/dL (32-36); MEAN CORPUSCULAR VOLUME 89 fL (80-99); MEAN PLATELET VOLUME 10.4 fL (9.0-12.2); MONOCYTES # (AUTO) 0.4 10^3/uL (0.0-1.0); MONOCYTES % (AUTO) 5 % (0-12); NEUTROPHILS # (AUTO) 5.1 10^3/uL (1.8-7.8); NEUTROPHILS % (AUTO) 68 % (42-75); PLATELET COUNT 259 10^3/uL (130-400); WHITE BLOOD COUNT 7.5 10^3/uL (4.3-11.0)
[2021-11-04 14:09] LABS: BACTERIA,URINE NEGATIVE /HPF
[2021-11-04 14:12] LABS: ALBUMIN 4.5 GM/DL (3.2-4.5); POTASSIUM 4.4 MMOL/L (3.6-5.0)
[2021-11-04 14:14] LABS: CALCIUM 9.5 MG/DL (8.5-10.1)
[2021-11-04 14:18] LABS: CREATININE SERUM 0.81 MG/DL (0.60-1.30); PHOSPHORUS 3.8 MG/DL (2.3-4.7)
[2021-11-04 14:21] LABS: MAGNESIUM 1.8 MG/DL (1.6-2.4)
== END ==
LOC: LAB 13:28
DX: N17.9 Acute kidney failure, unspecified (principal)
CPT/HCPCS: 36415; 80069; 81000; 82570; 83735; 84156; 85025

== ENCOUNTER → 2022-10-13 | Outpatient (CLI) | payer BC ==
--- NOTE | 2022-10-13 13:59 | Diagnostic Imaging Report ---
PROCEDURE: Pelvic comp/transvaginal sonogram. TECHNIQUE: Complete transabdominal and transvaginal pelvic ultrasound was performed. In addition, limited pelvic Doppler was performed. INDICATION: Vaginal bleeding. Patient is status post partial hysterectomy in 2021. Uterus is surgically absent. Right ovary measures 3.8 x 2.8 x 2.4 cm and the left ovary measures 3.4 x 1.7 x 1.7 cm. There is blood flow to the ovaries. No adnexal mass or free fluid is detected. Visualized cervix appears unremarkable. IMPRESSION: Status post partial hysterectomy. The study is otherwise unremarkable. Dictated by: Dictated on workstation # [id number]
== END ==
LOC: RAD 12:00
PROVIDERS: ATTEND Obstetrics & Gynecology
DX: N92.1 Excessive and frequent menstruation with irregular cycle (principal); Z90.710 Acquired absence of both cervix and uterus
CPT/HCPCS: 76830; 76856